=== PATIENT | male | born 1955 | race African-American/Black ===

== ENCOUNTER → 2016-08-23 | Emergency (ER) | payer MEDICAID ==
[~2016-08-23] VITALS: Ht 182.9 cm; Wt 163.3 kg
[~2016-08-23] MED LIST: ACETAMINOPHEN-1 EAC1 ORAL; ASPIR-LOW81 MG ORAL; ATENOLOL50 MG ORAL; AUGMENTIN 500M500 MG ORAL; FUROSEMIDE40 MG ORAL; GUAIFENESIN-CO118 M1 ORAL; HUMALOG100 UNIT/3 SUBQ; HYDRALAZINE HCL50 MG ORAL; IBUPROFEN600 MG ORAL; Ketorolac 60mg Inj IM ONE; LANTUS SOL100 UNIT/1 SUBQ; LEVAQUIN250 M1 ORAL; METFORMIN HCL1000 M1 ORAL; NORVASC10 MG ORAL; PHENERGAN/CODE120 ML ORAL; PHENERGAN6.25 MG/5 PO; TAMIFLU75 MG ORAL; pravastatin
[2016-08-23 23:27] VITALS: BP_SYST 142; BP_SYST 151; BP_DIAS 87; BP_DIAS 88
--- NOTE | 2016-08-24 00:47 | Emergency Room Report ---
History of Present Illness General Chief Complaint: Lower Extremity Injury Source: Patient Present Illness HPI Patient present with complaints of right knee pain Patient reports that he was coming down some stairs when he tripped and fell Hitting his right knee Pain is 8/10 Denies any pelvic pain denies any ankle pain Denies any chest pain or short of breath denies any other loss of consciousness Allergies: Coded Allergies: No Known Allergies (Verified , 04/06/11) Patient History Past Medical History: see triage record Pertinent Family History: none Reviewed Nursing Documentation: PMH: Agreed, PSxH: Agreed Nursing Documentation-PMH Hx Cardiac Problems: Yes - CHF Hx Hypertension: Yes Hx COPD: Yes Hx Diabetes: Yes Review of Systems All Other Systems: negative except mentioned in HPI Physical Exam Vital Signs Date Time Temp Pulse Resp B/P Pulse Ox O2 Delivery O2 Flow Rate FiO2 08/23/16 22:08 98.2 73 16 151/87 94 Room Air Sp02 EP Interpretation: reviewed, normal General Appearance: mild distress - In acute pain Head: normocephalic, atraumatic Eyes: bilateral eye EOMI, bilateral eye PERRL ENT: hearing grossly normal, normal pharynx Neck: full range of motion, supple, thyroid normal, no bony tend Respiratory: chest non-tender, lungs clear Cardiovascular #1: regular rate, rhythm, no edema Gastrointestinal: normal bowel sounds, non tender Genitourinary: no CVA tenderness Musculoskeletal: other - Tender on palpation of the right patella, no obvious ecchymosis or bruising Neurologic: alert Skin: normal color, no rash Lymphatic: no adenopathy Medical Decision Making Diagnostic Impression: Primary Impression: knee contusion ER Course Patient's imaging study does not reveal any obvious acute fracture patient has had severe arthritic changes along with previous pathology patient did better with acute intervention And will have close outpatient follow Other X-Ray Diagnostic Results Other X-Ray Diagnostic Results : EP Interpretation: Yes Findings: no fractures, no dislocation, no soft tissue swelling, other - Arthritic changes, questionable previous fracture Number of Views: 3 - right knee Last Vital Signs Date Time Temp Pulse Resp B/P Pulse Ox O2 Delivery O2 Flow Rate FiO2 08/23/16 23:27 98.3 88 16 142/88 96 Room Air Status: improved Disposition: HOME, SELF-CARE Condition: Improved Scripts Acetaminophen With Codeine (T#3) (TYLENOL #3 TAB*) Y Tab 1 TAB ORAL Q8H Y for For Pain, #10 TAB Prov: BHASKAR GUTIERREZ D.O. 08/23/16 Ibuprofen* (MOTRIN*) 600 Mg Tablet 600 MG ORAL Q8H Y for For Pain, #20 TAB 0 Refills Prov: BHASKAR GUTIERREZ D.O. 08/23/16 Referrals: [facility],REFERR[facility] (PCP) Patient Instructions: Contusion, [id number] Additional Instructions: Patient is provided with the discharge instructions notified to follow up with primary doctor in the next 2-3 days otherwise return to the er with any worsening symptoms. Please note that this report is being documented using [employer] technology. This can lead to erroneous entry secondary to incorrect interpretation by the dictating instrument. BHASKAR GUTIERREZ D.O. Aug 24, 2016 00:47
--- NOTE | 2016-08-24 11:24 | Diagnostic Imaging Report ---
Indication: PAIN Technique: 3 views of the right knee Comparison: None Findings:There are medial compartmental degenerative changes, and medial and lateral proliferative changes. There are patellofemoral proliferative changes and possibly some joint space narrowing. No suprapatellar effusion. No acute fractures. No dislocations. Impression:Degenerative changes, as described No acute bony trauma This agrees with the preliminary interpretation provided by the emergency room physician.
== END | disposition home or self-care (01) ==
LOC: EMR 22:30
DX: S80.01XA Contusion of right knee, initial encounter (principal); W10.9XXA Fall (on) (from) unspecified stairs and steps, initial encounter; Y92.9 Unspecified place or not applicable; I10 Essential (primary) hypertension; I50.9 Heart failure, unspecified; E11.9 Type 2 diabetes mellitus without complications; J44.9 Chronic obstructive pulmonary disease, unspecified
CPT/HCPCS: 96372; 99284

== ENCOUNTER 2018-05-17 14:12 | Emergency (ER) | payer MEDICAID ==
[~2018-05-17] VITALS: Ht 185.4 cm; Wt 140.6 kg
[~2018-05-17 14:12] MED LIST changes: -Ketorolac 60mg Inj IM ONE
[2018-05-17 14:30] VITALS: BP 148/100
--- NOTE | 2018-05-17 14:40 | Emergency Room Report ---
History of Present Illness General Chief Complaint: Pain Source: Patient, Medical Record Present Illness HPI Patient jammed his left fourth toe several days ago on a pipe. There is swelling on his foot now. He is diabetic. He's been taking Motrin 800 and [place] and this has been controlling the pain. 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 He denies any fevers or chills. There's no numbness. Is able to wiggle the toe. Pain rated 5/10, constant but worse when dependent, not radiate to foot. No rashes, skin breakdown. He takes "a lot" of insulin. He states his sugars have been well-controlled recently. No chest pain, abdominal pain, dysuria, change in bowels. Has chronic back pain, unchanged. 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 Nursing Documentation: PMH: Agreed; PSxH: Agreed Nursing Documentation-PMH Hx Cardiac Problems: Yes - CHF Hx Hypertension: Yes Hx COPD: Yes Hx Diabetes: Yes Review of Systems All Other Systems: negative except mentioned in HPI Physical Exam Vital Signs Date Time Temp Pulse Resp B/P (MAP) Pulse Ox O2 Delivery O2 Flow Rate FiO2 05/17/18 14:24 98.2 81 15 148/100 94 Room Air Sp02 EP Interpretation: reviewed, normal General Appearance: well appearing, no apparent distress, GCS 15 Head: normocephalic, atraumatic Eyes: bilateral eye normal inspection, bilateral eye PERRL ENT: hearing grossly normal, normal voice, moist mucus membranes Neck: full range of motion, supple Respiratory: lungs clear, normal breath sounds, no respiratory distress, speaking full sentences Cardiovascular #1: regular rate, rhythm, edema - minimal dorsum of L foot Cardiovascular #2: 2+ dorsalis pedis (L) - good cap fill Gastrointestinal: normal inspection, overweight Musculoskeletal: back normal, normal range of motion, no calf tenderness, swelling - L 4th toe, sl posterior displacement which he states is normal Neurologic: alert, motor strength/tone normal, sensory intact Psychiatric: mood/affect normal Skin: no rash, other - no erythema or skin breakdown, no T pedis noted Medical Decision Making Diagnostic Impression: Primary Impression: Toe fracture, left Qualified Codes: S92.515A - Nondisplaced fracture of proximal phalanx of left lesser toe(s), initial encounter for closed fracture Additional Impression: Diabetes Qualified Codes: E11.8 - Type 2 diabetes mellitus with unspecified complications; Z79.4 - roasterman (current) use of insulin ER Course Patient presents with trauma to his left fourth toe. Differential includes fracture, contusion, early infection amongst others. Clinically there is no evidence of infection at this time. X-rays are indicated. Also the patient will be given a dose of Tylenol. Xray with fx. Not place carissa tape as felt this would pose possible risk for skin breakdown. Ortho boot ordered. Discussed treatment plan with patient stressing elevation. Patient stable for outpatient observation and treatment. Other X-Ray Diagnostic Results Other X-Ray Diagnostic Results : # of Views/Limited Vs Complete: 3 View Indication: Pain EP Interpretation: Yes Interpretation: no dislocation, other - fx and STS Impression: Other Electronically Signed by: Electronically signed by Thomas Mayes MD Status: improved Disposition: HOME, SELF-CARE Condition: Improved Thomas Mayes MD May 17, 2018 14:40
--- NOTE | 2018-05-17 15:19 | Diagnostic Imaging Report ---
EXAM: XR Left Foot Complete, 3 or More Views CLINICAL HISTORY: TRAUMA TECHNIQUE: Frontal, lateral and oblique views of the left foot. COMPARISON: No relevant prior studies available. FINDINGS: Bones/joints: Nondisplaced fracture through the proximal phalanx of the fourth digit. No dislocation. Soft tissues: Unremarkable. No radiopaque foreign body. IMPRESSION: Nondisplaced fracture through the proximal phalanx of the fourth digit. No dislocation.
[2018-05-17 15:54] VITALS: BP 146/98
== END 2018-05-17 18:39 | disposition home or self-care (01) ==
LOC: EMR 14:35
DX: S92.515A Nondisplaced fracture of proximal phalanx of left lesser toe(s), initial encounter for closed fracture (principal); Z79.4 Long term (current) use of insulin; E11.9 Type 2 diabetes mellitus without complications; I11.0 Hypertensive heart disease with heart failure; I50.9 Heart failure, unspecified; J44.9 Chronic obstructive pulmonary disease, unspecified
CPT/HCPCS: 99283

== ENCOUNTER 2018-06-01 22:44 | Emergency (ER) | payer MEDICAID ==
[~2018-06-01] VITALS: Ht 182.9 cm; Wt 141.1 kg
--- NOTE | 2018-06-01 22:50 | NUR ---
ED Nurse Note: Pt walked into ER with a steady gait stating that he has R hip pain that radiates further down his leg. symptoms have started 3 days ago. pulse and cap refil are within normal limits. pulse and sensation noted.
[2018-06-01] MEDS ORDERED: POTASSIUM99 M3 PO (22:55)
[2018-06-01] MEDS ORDERED: GLIPIZIDE5 MG ORAL (22:55)
[2018-06-01 22:58] VITALS: BP 134/82
[2018-06-01] MEDS ORDERED: IBUPROFEN600 MG ORAL (23:13)
[2018-06-01] MEDS ORDERED: HYDROCODON-ACE1 EA15 ORAL (23:13)
--- NOTE | 2018-06-01 23:13 | Emergency Room Report ---
History of Present Illness General Chief Complaint: Pain Source: Patient Present Illness HPI Is a 63-year-old male with multiple medical problems. He presents with chief complaint of right hip pain. He was here recently for left foot pain and sustained a toe fracture. He's been walking with a orthopedic shoe. Now complaining of pain to the right hip and right buttock area. Onset for last few days. Initially to the mid buttock area. It now increasing pain and going down his leg. Worse with ambulating. Better with rest. No trauma. No fever chills but no nausea no vomiting. No incontinence of bowel or urine. Pain is 7 out of 10. Allergies: Coded Allergies: No Known Allergies (Verified , 04/06/11) Patient History Past Medical History: see triage record, old chart reviewed, DM, HTN Past Surgical History: other Pertinent Family History: none Social History: Denies: smoking Immunizations: other Reviewed Nursing Documentation: PMH: Agreed; PSxH: Agreed Nursing Documentation-PMH Hx Cardiac Problems: Yes - CHF Hx Hypertension: Yes Hx COPD: Yes Hx Diabetes: Yes Hx Neurological Problems: Yes - arthitis Review of Systems Eye: Denies: eye pain, blurred vision ENT: Denies: ear pain, nose congestion, throat swelling Respiratory: Denies: cough, shortness of breath Cardiovascular: Denies: chest pain, palpitations Gastrointestinal: Denies: abdominal pain, diarrhea, nausea, vomiting Musculoskeletal: Reports: back pain, joint pain Skin: Denies: rash Neurological: Denies: headache, numbness Endocrine: Denies: increased thirst, increased urine Hematologic/Lymphatic: Denies: easy bruising All Other Systems: negative except mentioned in HPI Physical Exam Vital Signs Date Time Temp Pulse Resp B/P (MAP) Pulse Ox O2 Delivery O2 Flow Rate FiO2 06/01/18 22:48 98.1 71 16 134/82 99 Room Air vitals normal Sp02 EP Interpretation: reviewed, normal General Appearance: well appearing, no apparent distress, alert, obese Head: normocephalic, atraumatic Eyes: bilateral eye PERRL, bilateral eye EOMI ENT: hearing grossly normal, normal pharynx Neck: full range of motion, supple, no meningismus Respiratory: chest non-tender, lungs clear, normal breath sounds Cardiovascular #1: regular rate, rhythm, no murmur Gastrointestinal: normal bowel sounds, non tender, no mass, no organomegaly, no bruit, non-distended Musculoskeletal: back normal, gait/station normal, normal range of motion, other - Pain over the right piriformis Psychiatric: mood/affect normal Skin: warm/dry Medical Decision Making Diagnostic Impression: Primary Impression: Piriformis syndrome of right side ER Course Patient with pain over the buttock in leg area. This is consistent with appear former syndrome. No fracture or dislocation. We'll discharge home. Other X-Ray Diagnostic Results Other X-Ray Diagnostic Results : X-Ray ordered: X-rays right hip # of Views/Limited Vs Complete: 3 View Indication: Pain EP Interpretation: Yes Interpretation: no dislocation, no soft tissue swelling, no fractures Impression: No acute disease Electronically Signed by: Apollo Lux MD Last Vital Signs Date Time Temp Pulse Resp B/P (MAP) Pulse Ox O2 Delivery O2 Flow Rate FiO2 06/01/18 22:58 98.1 70 16 134/82 99 Room Air Status: improved Disposition: HOME, SELF-CARE Condition: Stable Scripts Ibuprofen* (MOTRIN*) 600 Mg Tablet 600 MG ORAL THREE TIMES A DAY, #30 TAB 0 Refills Prov: Apollo Lux MD 06/01/18 Hydrocodone/Acetaminophen 5-325* (HYDROCODONE/ACETAMINOPHEN 5-325*) 1 Each Tablet 1 TAB ORAL Q6H PRN for For Pain, #15 TAB 0 Refills Prov: Apollo Lux MD 06/01/18 Additional Instructions: Follow-up with your doctor in 7 days. Return if symptom worsen. Apollo Lux MD Jun 01, 2018 23:13
[2018-06-01] MEDS ORDERED: Norco 5mg/325mg tab ORAL ONE (23:15)
--- NOTE | 2018-06-01 23:35 | NUR ---
ED Nurse Note: pt states he has a lot of congestion and cough, req med for congestion and breathing tx, ERMD notified. PER ERMD order, resp contacted.
[2018-06-01] MEDS ORDERED: Albuterol ud Inhalation HHN ONE (23:45)
--- NOTE | 2018-06-02 00:10 | NUR ---
ED Nurse Note: pt reports pain is slightly better, breathing is better after treatment. pt discharge instruction provided w/ prescription, pt education done, pt states friend VIKAS is picking pt up and driving home. pt verbalized understanding and agrees with plan. pt advised to follow up with pcp to continue care after dc.
[2018-06-02 00:12] VITALS: BP 141/77
--- NOTE | 2018-06-02 12:22 | Diagnostic Imaging Report ---
Indication: Pain in right hip for 2 days Technique: 2 views of the right hip Comparison: none Findings: There are degenerative changes of the medial pubic bone. There are mild degenerative changes of the right sacroiliac joint. No acute fractures. No dislocations. The hip joint space is preserved Impression: Mild degenerative changes. No acute bony trauma
== END 2018-06-02 00:10 | disposition home or self-care (01) ==
LOC: EMR 23:00
DX: G57.01 Lesion of sciatic nerve, right lower limb (principal); E66.9 Obesity, unspecified; E11.9 Type 2 diabetes mellitus without complications; J44.9 Chronic obstructive pulmonary disease, unspecified; I50.9 Heart failure, unspecified; M19.90 Unspecified osteoarthritis, unspecified site
CPT/HCPCS: 94640; 94664; 99284

== ENCOUNTER 2018-07-05 18:25 | Emergency (ER) | payer MEDICAID ==
[~2018-07-05] VITALS: Ht 182.9 cm; Wt 151.0 kg
[~2018-07-05 18:25] MED LIST changes: +GLIPIZIDE5 MG ORAL; +HYDROCODON-ACE1 EA15 ORAL; +POTASSIUM99 M3 PO
[2018-07-05] MEDS ORDERED: LOSARTAN POTASS25 MG ORAL (18:35)
[2018-07-05 18:58] VITALS: BP 125/98
[2018-07-05] MEDS ORDERED: Ipratropium 0.02% Inh Soln 2.5ml UD HHN ONE (19:00)
[2018-07-05] MEDS ORDERED: Albuterol ud Inhalation HHN ONE (19:00)
[2018-07-05 20:07] VITALS: BP 145/98
[2018-07-05] MEDS ORDERED: PREDNISONE20 MG ORAL (20:14)
[2018-07-05] MEDS ORDERED: CEPHALEXIN500 MG ORAL (20:14)
[2018-07-05 20:22] VITALS: BP 115/75
--- NOTE | 2018-07-06 14:34 | Emergency Room Report ---
History of Present Illness General Chief Complaint: General Complaint Source: Medical Record Present Illness HPI 63-year-old male presents ED for evaluation. Patient states he needs a breathing treatment. History of asthma. States he's been wheezing since yesterday. Denies chest pain or shortness of breath. Denies fevers or chills. Denies cough. Patient also states there is something in his right foot. States it is been there for many years. Has been evaluated by podiatry in the past. Has had multiple x-rays. Was told that if it surfaces it can be removed. Patient states he started feeling at surface yesterday. Wants to have it removed. Throbbing, 5 out of 10, nonradiating. Denies fevers or chills. Denies any discharge. No other aggravating relieving factors. Denies any other associated symptoms Allergies: Coded Allergies: No Known Allergies (Verified , 04/06/11) Patient History Past Medical History: DM, HTN, CHF, asthma Past Surgical History: none Pertinent Family History: none Social History: Denies: smoking, alcohol use, drug use Immunizations: UTD Reviewed Nursing Documentation: PMH: Agreed; PSxH: Agreed Nursing Documentation-PMH Past Medical History: No History, Except For Hx Cardiac Problems: Yes - CHF Hx Hypertension: Yes Hx COPD: Yes Hx Diabetes: Yes Hx Cancer: Yes - penile scrotal ca Hx Neurological Problems: Yes - arthitis Review of Systems All Other Systems: negative except mentioned in HPI Physical Exam Vital Signs Date Time Temp Pulse Resp B/P (MAP) Pulse Ox O2 Delivery O2 Flow Rate FiO2 07/05/18 18:30 98.8 63 18 163/88 96 Room Air 07/05/18 19:07 21 Sp02 EP Interpretation: reviewed, normal General Appearance: no apparent distress, alert, GCS 15, non-toxic Head: normocephalic, atraumatic Eyes: bilateral eye normal inspection, bilateral eye PERRL ENT: hearing grossly normal, normal pharynx, no angioedema, normal voice Neck: full range of motion, supple/symm/no masses Respiratory: chest non-tender, speaking full sentences, wheezing Cardiovascular #1: regular rate, rhythm, no edema Cardiovascular #2: 2+ carotid (R), 2+ carotid (L), 2+ radial (R), 2+ radial (L) , 2+ dorsalis pedis (R), 2+ dorsalis pedis (L) Gastrointestinal: normal bowel sounds, non tender, soft, non-distended, no guarding, no rebound Rectal: deferred Genitourinary: normal inspection, no CVA tenderness Musculoskeletal: back normal, gait/station normal, normal range of motion Neurologic: alert, oriented x3, responsive, motor strength/tone normal, sensory intact, speech normal Psychiatric: judgement/insight normal, memory normal, mood/affect normal, no suicidal/homicidal ideation Reflexes: 3+ bicep (R), 3+ bicep (L), 3+ tricep (R), 3+ tricep (L), 3+ knee (R) , 3+ knee (L) Skin: other - nodular swelling to base of R foot. no foreign body palpated Lymphatic: no adenopathy Medical Decision Making Diagnostic Impression: Primary Impression: Sensation of foreign body in foot Additional Impression: Bronchitis ER Course Hospital Course 63-year-old male presents to ED complaining of wheezing, states there is foreign body in foot Differential diagnoses include: URI, bronchitis, asthma/COPD, pneumonia Clinical course Patient placed on stretcher. After initial history and physical I ordered prednisone and nebulizer treatment. Upon reassessment patient states cough and symptoms have improved. Findings consistent with bronchitis. I evaluated the foot. There is a nodular swelling. Patient states it is been there for 2 years at least. There is no emergent indication to remove this as there is no signs of infection and it is been there for 2 years however I agreed to attempt a local exploration. I anesthetized the foot. using scalpel i made a small incision over the site. using forceps i explored the area but saw no sign of foreign body I explained the patient that I do not identify any foreign body at this time. Patient would require detailed exploration by podiatry. No signs of infection at this time. I will provide podiatry referrals. because patient is diabetic we 'll prescribe antibiotics Diagnosis - sensation of foreign body in foot, bronchitis Stable and discharged home with prescriptions for Rx keflex, prednisone. Instructed to followup with PMD, podiatry. Return to ED if symptoms recur or worsen Last Vital Signs Date Time Temp Pulse Resp B/P (MAP) Pulse Ox O2 Delivery O2 Flow Rate FiO2 07/05/18 20:22 98.0 68 14 115/75 99 Room Air 68 07/05/18 19:33 21 Status: improved Disposition: HOME, SELF-CARE Condition: Stable Scripts Prednisone* (PREDNISONE*) 20 Mg Tablet 40 MG ORAL DAILY, #10 TAB Prov: Piyush Pizano MD 07/05/18 Cephalexin* (KEFLEX*) 500 Mg Capsule 500 MG ORAL EVERY 6 HOURS for 7 Days, CAP Prov: Piyush Pizano MD 07/05/18 Referrals: NON PHYSICIAN (PCP) Escobar Johansen DPM, BENJAMIN M.D. Patient Instructions: Sliver Removal, Care After Piyush Pizano MD Jul 06, 2018 14:34
== END 2018-07-05 20:22 | disposition home or self-care (01) ==
LOC: EMR 18:50
DX: M25.571 Pain in right ankle and joints of right foot (principal); J20.9 Acute bronchitis, unspecified; I11.0 Hypertensive heart disease with heart failure; I50.9 Heart failure, unspecified; E11.9 Type 2 diabetes mellitus without complications; Z85.89 Personal history of malignant neoplasm of other organs and systems
CPT/HCPCS: 94640; 94664; 99284; J7512

== ENCOUNTER 2018-08-30 21:13 | Emergency (ER) | payer MEDICAID ==
[~2018-08-30] VITALS: Ht 182.9 cm; Wt 142.9 kg
[~2018-08-30 21:13] MED LIST changes: +CEPHALEXIN500 MG ORAL; +LOSARTAN POTASS25 MG ORAL; +PREDNISONE20 MG ORAL
--- NOTE | 2018-08-30 21:50 | NUR ---
ED Nurse Note: pt walked in c/o low back pain, pt states he was lifting something heavy and hurt his back on saturday and having pain since. Noted tenderness on low back, no obviou deformity nor open wound nor contusion noted. will cont monitor.
[2018-08-30] MEDS ORDERED: Methocarbamol 750mg tab ORAL ONE (22:00)
[2018-08-30] MEDS ORDERED: Ketorolac 30mg Inj IM ONE (22:00)
[2018-08-30 22:06] VITALS: BP 144/104
[2018-08-30] MEDS ORDERED: ROBAXIN-750750 MG PO (22:23)
[2018-08-30] MEDS ORDERED: TYLENOL EXTRA500 MG ORAL (22:23)
[2018-08-30] MEDS ORDERED: COLACE100 MG ORAL (22:23)
[2018-08-30] MEDS ORDERED: LIDODERM700 M1 TOPIC (22:23)
--- NOTE | 2018-08-30 22:25 | NUR ---
ED Nurse Note: pt cleared to be d/c per ERMD, pt discharge and aftercare instruction provided w/ prescription, pt education done via discussion and handout, pt advised to follow up with pcp or return to ed if sx worsen or new sx develop, pt verbalized understanding and agrees with plan, vss, ambulatory w/ steady gait, left w/ all belongings.
[2018-08-30 22:28] VITALS: BP 132/67
--- NOTE | 2018-08-31 01:41 | Emergency Room Report ---
History of Present Illness General Chief Complaint: Lower Back Pain or Injury Source: Patient Present Illness HPI 63-year-old male presents ED for evaluation. Complaining of back pain 2 days. 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 Pain is sharp, 10 out of 10, nonradiating. Localized to left lower back. States he took ibuprofen earlier today without relief. Denies bowel or bladder incontinence. Denies any leg or motor weakness. No other aggravating relieving factors. Denies any other associated symptoms Allergies: Coded Allergies: No Known Allergies (Verified , 04/06/11) Patient History Past Medical History: DM, HTN, CHF, COPD Past Surgical History: none Pertinent Family History: none Social History: Denies: smoking, alcohol use, drug use Immunizations: UTD Reviewed Nursing Documentation: PMH: Agreed; PSxH: Agreed Nursing Documentation-PMH Past Medical History: No History, Except For Hx Cardiac Problems: Yes - CHF Hx Hypertension: Yes Hx COPD: Yes Hx Diabetes: Yes Hx Cancer: Yes - penile scrotal ca Hx Neurological Problems: Yes - arthitis Review of Systems All Other Systems: negative except mentioned in HPI Physical Exam Vital Signs Date Time Temp Pulse Resp B/P (MAP) Pulse Ox O2 Delivery O2 Flow Rate FiO2 08/30/18 21:31 98.1 88 22 128/85 94 08/30/18 22:06 Room Air Sp02 EP Interpretation: reviewed, normal General Appearance: no apparent distress, alert, GCS 15, non-toxic, obese Head: normocephalic, atraumatic Eyes: bilateral eye normal inspection, bilateral eye PERRL ENT: hearing grossly normal, normal pharynx, no angioedema, normal voice Neck: full range of motion, supple/symm/no masses Respiratory: chest non-tender, lungs clear, normal breath sounds, speaking full sentences Cardiovascular #1: regular rate, rhythm, no edema Cardiovascular #2: 2+ carotid (R), 2+ carotid (L), 2+ radial (R), 2+ radial (L) , 2+ dorsalis pedis (R), 2+ dorsalis pedis (L) Gastrointestinal: normal bowel sounds, non tender, soft, non-distended, no guarding, no rebound Rectal: deferred Genitourinary: normal inspection, no CVA tenderness, no vertebral tenderness Musculoskeletal: gait/station normal, normal range of motion, tender - L paraspinal lumbar tenderness Neurologic: alert, oriented x3, responsive, motor strength/tone normal, sensory intact, speech normal Psychiatric: judgement/insight normal, memory normal, mood/affect normal, no suicidal/homicidal ideation Reflexes: 3+ bicep (R), 3+ bicep (L), 3+ tricep (R), 3+ tricep (L), 3+ knee (R) , 3+ knee (L) Skin: normal color, no rash, warm/dry, well hydrated Lymphatic: no adenopathy Medical Decision Making Diagnostic Impression: Primary Impression: Unspecified injury of lower back, sequela Additional Impression: Opioid dependence Qualified Codes: F11.29 - Opioid dependence with unspecified opioid-induced disorder ER Course Hospital Course 63-year-old male presents ED complaining of lower back pain. Differential diagnoses include: pyelonephritis, kidney stone, muscle strain, Lspine fracture Clinical course Patient placed on stretcher. After initial history, physical exam reveals a middle-aged male in no acute distress. There is no vertebral body tenderness. no CVA tenderness. There is some paraspinal tenderness on the left side. 5 out of 5 strength in both extremities. No sensory deficits. I reviewed CURES; he is receiving monthly prescriptions for [place] and soma. patient denies receiving these medications Patient given Toradol, Robaxin, Lidoderm here in ED. On reassessment pain is improved. Safe for discharge with close patient follow up. States he has a PMD Diagnosis - back pain, opioid dependence Stable and discharged to home with prescription for treatment tylenol, robaxin, lidoderm. Followup with PMD. Return to ED if symptoms recur or worsen Last Vital Signs Date Time Temp Pulse Resp B/P (MAP) Pulse Ox O2 Delivery O2 Flow Rate FiO2 08/30/18 22:28 98.4 74 16 132/67 98 Room Air Status: improved Disposition: HOME, SELF-CARE Condition: Stable Scripts Docusate Sodium* (COLACE*) 100 Mg Capsule 100 MG ORAL THREE TIMES A DAY, #30 CAP Prov: Piyush Pizano MD 08/30/18 Lidocaine (Lidoderm) 1 Each Adh..patch 1 PATCH TOPIC DAILY, #7 PATCH 0 Refills Patch(es) may remain in place for up to 12 hours in any 24-hour period. Prov: Piyush Pizano MD 08/30/18 Methocarbamol* (ROBAXIN-750*) 750 Mg Tablet 750 MG PO TID, #21 TAB 0 Refills Prov: Piyush Pizano MD 08/30/18 Acetaminophen* (TYLENOL EXTRA STRENGTH*) 500 Mg Tablet 500 MG ORAL Q8H PRN for Prn Headache/Temp > 101, #30 TAB 0 Refills Prov: Piyush Pizano MD 08/30/18 Referrals: [facility],REFERRING (PCP) [facility] Patient Instructions: Lumbosacral Strain Piyush Pizano MD Aug 31, 2018 01:41
== END 2018-08-30 22:28 | disposition home or self-care (01) ==
LOC: EMR 22:00
DX: S39.92XA Unspecified injury of lower back, initial encounter (principal); X50.9XXA Other and unspecified overexertion or strenuous movements or postures, initial encounter; Y92.9 Unspecified place or not applicable; F11.20 Opioid dependence, uncomplicated; I11.0 Hypertensive heart disease with heart failure; I50.9 Heart failure, unspecified; E11.9 Type 2 diabetes mellitus without complications; J44.9 Chronic obstructive pulmonary disease, unspecified; Z85.89 Personal history of malignant neoplasm of other organs and systems
CPT/HCPCS: 96372; 99283; J1885

== ENCOUNTER 2018-10-09 19:36 | Inpatient (IN) | payer MEDICAID ==
[~2018-10-09] VITALS: Ht 182.9 cm; Wt 158.8 kg
[~2018-10-09 19:36] MED LIST changes: +COLACE100 MG ORAL; +LIDODERM700 M1 TOPIC; +ROBAXIN-750750 MG PO; +TYLENOL EXTRA500 MG ORAL
--- NOTE | 2018-10-09 19:45 | NUR ---
ED Nurse Note: Received report. Pt from home, AAOx4, ambulatory, c/o c/p 10/10 for 2 days. Pt has hx of CHF, HTN and DM. VS taken, president/gm production & live experiences applied. [place] assess and carry out ERMD's orders.
[2018-10-09] MEDS ORDERED: NORCO 10-325 T1 EACH ORAL (19:55)
[2018-10-09] MEDS ORDERED: ATORVASTATIN CA40 MG ORAL (19:55)
[2018-10-09] MEDS ORDERED: ASPIRIN81 M3 PO (19:55)
[2018-10-09 20:00] VITALS: BP 113/84
[2018-10-09] MEDS ORDERED: Aspirin Baby 81mg ORAL ONE (20:00)
[2018-10-09] MEDS ORDERED: Nitroglycerin 2% oint pkt TOPIC ONE (20:00)
--- NOTE | 2018-10-09 20:27 | Emergency Room Report ---
History of Present Illness General Chief Complaint: Chest Pain Source: Patient Present Illness HPI Patient has a history of CHF coronary artery diabetes who presents to the emergency department today complaining of chest pain. Chest pain is described as intermittent episodic retrosternal lasting throughout yesterday and today. Patient states that he has not had a recent stress test. He saw a tray server who told him that he likely had congestion. No other complaints are noted. Symptoms noted to be moderate to severe. Denies any fever cough runny nose or sore throat. No other modifying factors. No other associated signs and symptoms. No other complaints were noted. Allergies: Coded Allergies: No Known Allergies (Verified , 04/06/11) Patient History Past Medical History: DM, HTN, CHF, COPD Past Surgical History: none Social History: Denies: smoking, alcohol use, drug use Reviewed Nursing Documentation: PMH: Agreed; PSxH: Agreed Nursing Documentation-PMH Hx Cardiac Problems: Yes - CHF Hx Hypertension: Yes Hx COPD: Yes Hx Diabetes: Yes Hx Cancer: Yes - penile scrotal ca Hx Neurological Problems: Yes - arthitis Review of Systems All Other Systems: negative except mentioned in HPI Physical Exam Vital Signs Date Time Temp Pulse Resp B/P (MAP) Pulse Ox O2 Delivery O2 Flow Rate FiO2 10/09/18 19:40 98.6 115 14 100 Room Air Sp02 EP Interpretation: reviewed, normal General Appearance: normal inspection, well appearing, no apparent distress, alert Head: atraumatic Eyes: bilateral eye normal inspection ENT: normal ENT inspection, hearing grossly normal, normal voice Neck: normal inspection, full range of motion, supple, no bony tend Respiratory: normal inspection, lungs clear, normal breath sounds, no respiratory distress, no retraction, no wheezing Cardiovascular #1: regular rate, rhythm, no edema Gastrointestinal: normal inspection, normal bowel sounds, non tender, soft, no guarding, no hernia Genitourinary: no CVA tenderness Musculoskeletal: normal inspection, back normal, normal range of motion, swelling - leg swelling Neurologic: normal inspection, alert, responsive, speech normal Psychiatric: normal inspection, judgement/insight normal, mood/affect normal Skin: normal inspection, normal color, no rash Medical Decision Making Diagnostic Impression: Primary Impression: Chest pain Additional Impressions: Atrial fibrillation and flutter Unstable angina ER Course Patient presents emergency department today complaint chest discomfort. Differential considerations include acute coronary syndrome, electrolyte abnormality, noncardiac chest pain just name a few. Given the severity of the patient's presentation I felt this is a highly complex patient. This patient required extensive workup. Patient is complete laboratory work-up is pending at this time. However EKG shows evidence of atrial fibrillation. Because patient has evidence of atrial fibrillation which is new onset with risk factors chest pain after the patient likely requires admission. At time at this dictation patient's pending laboratory work-up. We will sign the case out to Dr. Kendell Willoughby for final disposition. Labs Test 10/09/18 19:55 Sodium Level 141 MMOL/L (136-145) Potassium Level 3.2 MMOL/L (3.5-5.1) Chloride Level 104 MMOL/L (98-107) Carbon Dioxide Level 28 MMOL/L (21-32) Anion Gap 9 mmol/L (5-15) Blood Urea Nitrogen 20 mg/dL (7-18) Creatinine 1.9 MG/DL (0.55-1.30) Estimat Glomerular Filtration Rate 43.9 mL/min (>60) Glucose Level 191 MG/DL (74-106) Calcium Level 8.9 MG/DL (8.5-10.1) Troponin I 0.010 ng/mL (0.000-0.056) EKG Diagnostic Results Rate: normal Rhythm: other - Atrial fibrillation ST Segments: no acute changes Rhythm Strip Diag. Results EP Interpretation: yes Rate: 80s Rhythm: no PVC's, no ectopy, other - Atrial fibrillation Chest X-Ray Diagnostic Results Chest X-Ray Diagnostic Results : Chest X-Ray Ordered: Yes # of Views/Limited/Complete: 1 View Indication: Chest Pain EP Interpretation: Yes Interpretation: no consolidation, no effusion, no pneumothorax Impression: No acute disease Electronically Signed by: Electronically signed by Fransisco Oseguera MD Last Vital Signs Date Time Temp Pulse Resp B/P (MAP) Pulse Ox O2 Delivery O2 Flow Rate FiO2 10/09/18 19:40 98.6 115 14 100 Room Air Status: improved Disposition: ADMITTED INPATIENT Condition: Serious Referrals: [facility],REFERRING (PCP) Fransisco Oseguera MD October 09, 2018 20:27
[2018-10-09 20:35] LABS: ANION GAP 9 mmol/L (5-15); BLOOD UREA NITROGEN 20 mg/dL (7-18); CALCIUM 8.9 MG/DL (8.5-10.1); CARBON DIOXIDE 28 MMOL/L (21-32); CHLORIDE 104 MMOL/L (98-107); CREATININE 1.9 MG/DL (0.55-1.30); POTASSIUM 3.2 MMOL/L (3.5-5.1); SODIUM 141 MMOL/L (136-145)
[2018-10-09 20:56] LABS: ALANINE AMINOTRANSFERASE 26 U/L (12-78); ALBUMIN 3.8 G/DL (3.4-5.0); ALKALINE PHOSPHATASE 84 U/L (46-116); ASPARTATE AMINO TRANSFERASE 17 U/L (15-37); BILIRUBIN,TOTAL 0.5 MG/DL (0.2-1.0); CREATINE KINASE 564 U/L (26-308)
[2018-10-09] MEDS ORDERED: [UNRECOGNIZED DRUG - OTHER] (21:07)
[2018-10-09] MEDS ORDERED: VENTOLIN HFA18 GM INH (21:07)
[2018-10-09] MEDS ORDERED: ADVAIR 500-501 EACH INH (21:07)
[2018-10-09 21:08] LABS: APPEARANCE,URINE CLEAR; BILIRUBIN, URINE NEGATIVE (NEGATIVE); COLOR,URINE AMBER; GLUCOSE, URINE (UA) 1+ (NEGATIVE); KETONES,URINE 1+ (NEGATIVE); LEUKOCYTE ESTERASE ,URINE 1+ (NEGATIVE); NITRITE,URINE NEGATIVE (NEGATIVE); PH,URINE 5 (4.5-8.0); PROTEIN,URINE 2+ (NEGATIVE); UROBILINOGEN,URINE 1 MG/DL (0.0-1.0)
[2018-10-09 21:10] LABS: BASOPHILS % (AUTO) 1.2 % (0.0-2.0); EOSINOPHILS % (AUTO) 4.1 % (0.0-3.0); HEMATOCRIT 37.7 % (42.0-52.0); HEMOGLOBIN 12.5 G/DL (14.2-18.0); LYMPHOCYTES % (AUTO) 33.4 % (20.0-45.0); MEAN CORPUSCULAR VOLUME 79 FL (80-99); NEUTROPHILS % (AUTO) 52.3 % (45.0-75.0); PLATELET COUNT 187 K/UL (150-450); RED BLOOD COUNT 4.75 M/UL (4.70-6.10); RED CELL DISTRIBUTION WIDTH 13.3 % (11.6-14.8); WHITE BLOOD COUNT 6.3 K/UL (4.8-10.8)
--- NOTE | 2018-10-09 21:51 | NUR ---
NURSE NOTES: Received report via phone from SHAUN Blanca. Called and left a message with Dr. Rodriguez regarding admission orders. Awaiting call back and patient arrival.
[2018-10-09] MEDS ORDERED: Morphine Sulfate 2mg/ml Inj(IV/IM USE ONLY) IVP PRN (22:00)
[2018-10-09] MEDS: Heparin 5000 units/ml inj SUBQ SCH (22:00)
[2018-10-09] MEDS ORDERED: dilTIAZem HCl 25mg/5ml Inj IV PRN (22:00)
[2018-10-09] MEDS ORDERED: Miralax 17gm pkt ORAL PRN (22:00)
[2018-10-09] MEDS ORDERED: Enalaprilat 2.5mg/2ml Inj IV PRN (22:00)
[2018-10-09] MEDS ORDERED: Nitroglycerin Subl 0.4mg tab SL PRN (22:00)
[2018-10-09 22:45] VITALS: BP 124/60
--- NOTE | 2018-10-09 22:56 | NUR ---
NURSE NOTES: Received pt on the unit. Called and left message with Dr. Cardoso informing him that pt sleeps with CPAP and his potassium is low with no coverage in the ER. Awaiting reply. Pt is awake, alert, and talkative. VSS. Pt has no current complaints of pain and reported that he feels much better. He ambulates steadily. Bed in lowest position. Lung sounds clear. Call light within reach. Will continue to monitor.
--- NOTE | 2018-10-09 23:41 | NUR ---
HAND-OFF: Report given to SHAUN Maya. Pt stable.
--- NOTE | 2018-10-09 23:45 | NUR ---
NURSE NOTES: Received report from Chris Carrasco RN. Patient in bed AAO X4, able to verbalize needs and wants appropriately with no difficulty. No complaints of acute pain at this time, kept clean, dry, and comfortable in bed. Placed on continuous cardiac monitoring per protocol. IV line intact and patent SL. Able to use urinal at bedside, and ambulates with assist to the bathroom. Safety precaution in place; siderails X2 up, call light within reach, bed in lowest position, brakes and alarm on at all times. New orders received and carried out; needs and wants anticipated and attended. Will continue plan of care and monitor for any changes noted.
[2018-10-10] VITALS: BP 125/74
[2018-10-10] MEDS: Albuterol/Ipratropium 3ml neb HHN PRN ×2 (01:35→08:59)
--- NOTE | 2018-10-10 02:08 | NUR ---
NURSE NOTES: Patient in bed asleep with no S/S of distress noted at this times. Will continue to monitor.
--- NOTE | 2018-10-10 03:08 | NUR ---
NURSE NOTES: Patient complaining of SOB, laying flat in bed. Offered to raise HOB to alleviate and help with SOB. Called Rt to give HHN TX PRN. Patient stated that he has a CPAP at home and uses it at night for episodes of Apnea. MD aware but no new orders. Will F/U with AM shift
[2018-10-10 04:00] VITALS: BP 128/78
[2018-10-10] MEDS: Heparin 5000 units/ml inj SUBQ SCH (06:13)
[2018-10-10] MEDS: NovoLOG Insulin Flexpen SUBQ SCH ×2 (06:14→12:21)
[2018-10-10 06:36] LABS: BASOPHILS % (AUTO) 1.1 % (0.0-2.0); EOSINOPHILS % (AUTO) 5.8 % (0.0-3.0); HEMOGLOBIN 11.8 G/DL (14.2-18.0); LYMPHOCYTES % (AUTO) 34.7 % (20.0-45.0); MEAN CORPUSCULAR VOLUME 81 FL (80-99); MONOCYTES % (AUTO) 10.6 % (1.0-10.0); NEUTROPHILS % (AUTO) 47.9 % (45.0-75.0); PLATELET COUNT 178 K/UL (150-450); RED BLOOD COUNT 4.47 M/UL (4.70-6.10); RED CELL DISTRIBUTION WIDTH 13.7 % (11.6-14.8); WHITE BLOOD COUNT 5.9 K/UL (4.8-10.8)
[2018-10-10 06:40] LABS: INR 1.1 (0.9-1.1)
[2018-10-10 07:01] LABS: CHOLESTEROL 101 MG/DL (< 200); HDL CHOLESTEROL 24 MG/DL (40-60); TRIGLYCERIDES 131 MG/DL (30-150)
--- NOTE | 2018-10-10 07:41 | NUR ---
HAND-OFF: Report given to Monse Faulkner RN. Patient in bed with S/S of distress at this time. Will continue plan of care and monitor for any changes noted.
--- NOTE | 2018-10-10 07:57 | NUR ---
NURSE NOTES: received report from Francesco DUNN. Pt is awake using the restroom urinated and had a bowel movement this morning. Pt on cardiac/vascular sonographer no signs of distress at this time. Bed is locked and in lowest position and call light is next to him. Will continue to follow plan of care.
[2018-10-10 08:00] VITALS: BP 141/91
--- NOTE | 2018-10-10 08:17 | NUR ---
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
[2018-10-10] MEDS ORDERED: Aspirin Baby 81mg ORAL SCH (09:00)
[2018-10-10] MEDS ORDERED: Promethazine/Codeine 5ml UD ORAL PRN (11:15)
--- NOTE | 2018-10-10 11:26 | Consultation ---
History of Present Illness General Date patient seen: October 10, 2018 Chief Complaint: Chest Pain Present Illness HPI 63 year old male with a history of CHF, CAD< COPD, Obesity, diabetes presented to the emergency department today complaining of chest pain, described as intermittent episodic retrosternal lasting throughout yesterday and today. He also has productive cough with greenish phlegm. He was diagnosed to have atrial flutter and admitted to telemetry. Allergies: Coded Allergies: No Known Allergies (Verified , 04/06/11) Medication History Scheduled Albuterol Sulfate (Ventolin Hfa), 2 PUFFS INH EVERY 6 HOURS, (Reported) Amlodipine Besylate (Norvasc), 10 MG ORAL DAILY, (Reported) Atenolol* (Tenormin*), 50 MG ORAL DAILY, (Reported) Atorvastatin Calcium* (Atorvastatin Calcium*), 50 MG ORAL BEDTIME, (Reported) Cephalexin* (Keflex*), 500 MG ORAL EVERY 6 HOURS Docusate Sodium* (Colace*), 100 MG ORAL THREE TIMES A DAY Fluticasone/Salmeterol (Advair 500-50 Diskus), 1 PUFF INH EVERY 12 HOURS, ( Reported) Glipizide* (Glipizide*), 10 MG ORAL BIDAC, (Reported) Ibuprofen* (Motrin*), 600 MG ORAL THREE TIMES A DAY Insulin Glargine (Lantus), 60 SUBQ BEDTIME, (Reported) Lidocaine (Lidoderm), 1 PATCH TOPIC DAILY Losartan Potassium* (Losartan Potassium*), 25 MG ORAL DAILY, (Reported) Methocarbamol* (Robaxin-750*), 750 MG PO TID Prednisone* (Prednisone*), 40 MG ORAL DAILY Scheduled PRN Acetaminophen* (Tylenol Extra Strength*), 500 MG ORAL Q8H PRN for Prn Headache/ Temp > 101 Hydrocodone Bit/Acetaminophen 10-325* ([place] 10-325*), 1 TAB ORAL Q6H PRN for For Pain, (Reported) Hydrocodone/Acetaminophen 5-325* (Hydrocodone/Acetaminophen 5-325*), 1 TAB ORAL Q6H PRN for For Pain Miscellaneous Medications Aspirin (Aspirin), 81 MG PO, (Reported) Potassium Gluconate (Potassium), 25 MG PO, (Reported) [Spiral], (Reported) Patient History Healthcare decision maker [phone] daughter Resuscitation status Full Code Advanced Directive on File Past Medical/Surgical History Past Medical/Surgical History: (1) CAD (coronary artery disease) (2) COPD (chronic obstructive pulmonary disease) Review of Systems All Other Systems: negative except mentioned in HPI Physical Exam General Appearance: obese Lines, tubes and drains: peripheral HEENT: normocephalic, atraumatic Neck: non-tender, normal alignment Respiratory/Chest: chest wall non-tender, lungs clear Breasts: no masses Cardiovascular/Chest: normal peripheral pulses Abdomen: normal bowel sounds Genitourinary/Rectal: normal genital exam Extremities: normal range of motion Skin Exam: normal pigmentation Last 24 Hour Vital Signs Date Time Temp Pulse Resp B/P (MAP) Pulse Ox O2 Delivery O2 Flow Rate FiO2 10/10/18 09:12 90 18 100 Room Air 21 10/10/18 08:59 87 18 Room Air 21 10/10/18 08:59 87 18 95 Room Air 21 10/10/18 08:00 97.7 94 18 141/91 (108) 94 10/10/18 08:00 93 10/10/18 04:00 96.8 84 20 128/78 (95) 96 10/10/18 04:00 81 10/10/18 01:47 88 18 100 Room Air 21 10/10/18 01:35 90 22 92 Room Air 21 10/10/18 01:35 90 22 Room Air 21 10/10/18 00:00 86 10/10/18 00:00 98.2 85 20 125/74 (91) 95 10/09/18 23:30 90 10/09/18 23:02 Room Air 10/09/18 22:45 97.3 87 124/60 (81) 96 10/09/18 21:48 86 17 129/67 97 Room Air 10/09/18 20:00 98.6 88 17 113/84 99 Room Air 10/09/18 20:00 137/85 10/09/18 19:48 118 18 Room Air 10/09/18 19:40 98.6 115 14 100 Room Air Intake and Output 10/09/18 10/10/18 19:00 07:00 Intake Total 480 ml Balance 480 ml Intake Oral 480 ml Laboratory Tests Test 10/09/18 19:55 10/09/18 20:35 10/09/18 20:55 10/10/18 04:50 Sodium Level 141 MMOL/L (136-145) Potassium Level 3.2 MMOL/L (3.5-5.1) L Chloride Level 104 MMOL/L (98-107) Carbon Dioxide Level 28 MMOL/L (21-32) Anion Gap 9 mmol/L (5-15) Blood Urea Nitrogen 20 mg/dL (7-18) H Creatinine 1.9 MG/DL (0.55-1.30) H Estimat Glomerular Filtration Rate 43.9 mL/min (>60) Glucose Level 191 MG/DL (74-106) H Calcium Level 8.9 MG/DL (8.5-10.1) Total Bilirubin 0.5 MG/DL (0.2-1.0) Aspartate Amino Transf (AST/SGOT) 17 U/L (15-37) Alanine Aminotransferase (ALT/SGPT) 26 U/L (12-78) Alkaline Phosphatase 84 U/L (46-116) Total Creatine Kinase 564 U/L (26-308) H Creatine Kinase MB 3.0 NG/ML (0.0-3.6) Creatine Kinase MB Relative Index 0.5 Troponin I 0.010 ng/mL (0.000-0.056) 0.017 ng/mL (0.000-0.056) Pro-B-Type Natriuretic Peptide 202 pg/mL (0-125) H Total Protein 7.7 G/DL (6.4-8.2) Albumin 3.8 G/DL (3.4-5.0) Globulin 3.9 g/dL Albumin/Globulin Ratio 1.0 (1.0-2.7) White Blood Count 6.3 K/UL (4.8-10.8) 5.9 K/UL (4.8-10.8) Red Blood Count 4.75 M/UL (4.70-6.10) 4.47 M/UL (4.70-6.10) L Hemoglobin 12.5 G/DL (14.2-18.0) L 11.8 G/DL (14.2-18.0) L Hematocrit 37.7 % (42.0-52.0) L 36.0 % (42.0-52.0) L Mean Corpuscular Volume 79 FL (80-99) L 81 FL (80-99) Mean Corpuscular Hemoglobin 26.3 PG (27.0-31.0) L 26.4 PG (27.0-31.0) L Mean Corpuscular Hemoglobin Concent 33.2 G/DL (32.0-36.0) 32.7 G/DL (32.0-36.0) Red Cell Distribution Width 13.3 % (11.6-14.8) 13.7 % (11.6-14.8) Platelet Count 187 K/UL (150-450) 178 K/UL (150-450) Mean Platelet Volume 8.2 FL (6.5-10.1) 7.9 FL (6.5-10.1) Neutrophils (%) (Auto) 52.3 % (45.0-75.0) 47.9 % (45.0-75.0) Lymphocytes (%) (Auto) 33.4 % (20.0-45.0) 34.7 % (20.0-45.0) Monocytes (%) (Auto) 9.0 % (1.0-10.0) 10.6 % (1.0-10.0) H Eosinophils (%) (Auto) 4.1 % (0.0-3.0) H 5.8 % (0.0-3.0) H Basophils (%) (Auto) 1.2 % (0.0-2.0) 1.1 % (0.0-2.0) Urine Color Noris Urine Appearance Clear Urine pH 5 (4.5-8.0) Urine Specific [place] 1.025 (1.005-1.035) Urine Protein 2+ (NEGATIVE) H Urine Glucose (UA) 1+ (NEGATIVE) H Urine Ketones 1+ (NEGATIVE) H Urine Blood Negative (NEGATIVE) Urine Nitrite Negative (NEGATIVE) Urine Bilirubin Negative (NEGATIVE) Urine Ictotest Negative (NEGATIVE) Urine Urobilinogen 1 MG/DL (0.0-1.0) H Urine Leukocyte Esterase 1+ (NEGATIVE) H Urine RBC 0-2 /HPF (0 - 0) H Urine WBC 0-2 /HPF (0 - 0) Urine Squamous Epithelial Cells Occasional /LPF Urine Bacteria Few /HPF (NONE) Prothrombin Time 11.3 SEC (9.30-11.50) Prothromb Time International Ratio 1.1 (0.9-1.1) Activated Partial Thromboplast Time 25 SEC (23-33) C-Reactive Protein, Quantitative < 0.4 mg/dL (0.00-0.90) Triglycerides Level 131 MG/DL (30-150) Cholesterol Level 101 MG/DL (< 200) LDL Cholesterol 65 mg/dL (<100) HDL Cholesterol 24 MG/DL (40-60) L Cholesterol/HDL Ratio 4.2 (3.3-4.4) Thyroid Stimulating Hormone (TSH) 1.155 uiU/mL (0.358-3.740) Height (Feet): 6 Height (Inches): 0.00 Weight (Pounds): 350 Medications Current Medications Medications (Trade) Dose Ordered Sig/Bernadine Route PRN Reason Start Time Stop Time Status Last Admin Dose Admin Acetaminophen (Tylenol) 650 mg Q4H PRN ORAL FEVER 10/09/18 22:00 11/08/18 21:59 10/10/18 03:28 Albuterol/ Ipratropium (Albuterol/ Ipratropium) 3 ml Q4H PRN HHN Shortness of Breath 10/09/18 22:00 10/14/18 21:59 10/10/18 08:59 Aspirin (ASA) 162 mg DAILY ORAL 10/10/18 09:00 11/09/18 08:59 10/10/18 08:44 Dextrose (Dextrose 50%) 25 ml Q30M PRN IV Hypoglycemia 10/09/18 22:00 11/08/18 21:59 Diltiazem HCl (Cardizem) 10 mg Q1H PRN IV heart rate more than 120, 10/09/18 22:00 11/08/18 21:59 Enalaprilat (Vasotec) 2.5 mg Q6H PRN IV sbp more than 160 10/09/18 22:00 11/08/18 21:59 Heparin Sodium (Porcine) (Heparin 5000 units/ml) 5,000 units EVERY 8 HOURS SUBQ 10/09/18 22:00 11/08/18 21:59 10/10/18 06:13 Insulin Aspart (NovoLOG) BEFORE MEALS AND HS SUBQ 10/10/18 06:30 11/09/18 06:29 10/10/18 06:14 Levofloxacin 100 ml @ 100 mls/hr Q24H IVPB 10/10/18 11:15 10/17/18 11:14 UNV Morphine Sulfate (Morphine Sulfate) 2 mg Q4H PRN IVP severe Pain (Pain Scale 7-10) 10/09/18 22:00 10/16/18 21:59 Nitroglycerin (Ntg) 0.4 mg Q5M PRN SL Chest Pain 10/09/18 22:00 11/08/18 21:59 Ondansetron HCl (Zofran) 4 mg Q6H PRN IVP Nausea & Vomiting 10/09/18 22:00 11/08/18 21:59 Pantoprazole (Protonix) 40 mg DAILY ORAL 10/10/18 09:00 11/09/18 08:59 10/10/18 08:44 Polyethylene Glycol (Miralax) 17 gm DAILYPRN PRN ORAL Constipation 10/09/18 22:00 11/08/18 21:59 Promethazine HCl/ Codeine (Phenergan with Codeine) 5 ml Q4H PRN ORAL For Cough 10/10/18 11:15 11/09/18 11:14 Temazepam (Restoril) 15 mg HSPRN PRN ORAL Insomnia 10/09/18 22:00 10/16/18 21:59 Assessment/Plan Problem List: (1) Atrial fibrillation and flutter ICD Codes: I48.91 - Unspecified atrial fibrillation; I48.92 - Unspecified atrial flutter SNOMED: 591044839 (2) Acute coronary syndrome ICD Codes: I24.9 - Acute ischemic heart disease, unspecified SNOMED: 265246426 (3) Acute bronchitis ICD Codes: J20.9 - Acute bronchitis, unspecified SNOMED: 82655870 (4) COPD (chronic obstructive pulmonary disease) ICD Codes: J44.9 - Chronic obstructive pulmonary disease, unspecified SNOMED: 72452732 (5) CAD (coronary artery disease) ICD Codes: I25.10 - Atherosclerotic heart disease of [place] coronary artery without angina pectoris SNOMED: 06532975 Assessment/Plan: respiratory treatment check sputum serial ekg, troponin cardiology evaluation echo cardiogram Danny Cardoso MD October 10, 2018 11:26
--- NOTE | 2018-10-10 11:33 | Cardiac Electrophysiology PN ---
Subjective Subjective [id number] Objective Last 24 Hour Vital Signs Date Time Temp Pulse Resp B/P (MAP) Pulse Ox O2 Delivery O2 Flow Rate FiO2 10/10/18 09:12 90 18 100 Room Air 21 10/10/18 09:00 Room Air 10/10/18 08:59 87 18 Room Air 21 10/10/18 08:59 87 18 95 Room Air 21 10/10/18 08:00 97.7 94 18 141/91 (108) 94 10/10/18 08:00 93 10/10/18 04:00 96.8 84 20 128/78 (95) 96 10/10/18 04:00 81 10/10/18 01:47 88 18 100 Room Air 21 10/10/18 01:35 90 22 92 Room Air 21 10/10/18 01:35 90 22 Room Air 21 10/10/18 00:00 86 10/10/18 00:00 98.2 85 20 125/74 (91) 95 10/09/18 23:30 90 10/09/18 23:02 Room Air 10/09/18 22:45 97.3 87 124/60 (81) 96 10/09/18 21:48 86 17 129/67 97 Room Air 10/09/18 20:00 98.6 88 17 113/84 99 Room Air 10/09/18 20:00 137/85 10/09/18 19:48 118 18 Room Air 10/09/18 19:40 98.6 115 14 100 Room Air Intake and Output 10/09/18 10/10/18 18:59 06:59 Intake Total 480 ml Balance 480 ml Intake Oral 480 ml Laboratory Tests Test 10/09/18 19:55 10/09/18 20:35 10/09/18 20:55 10/10/18 04:50 Sodium Level 141 MMOL/L (136-145) Potassium Level 3.2 MMOL/L (3.5-5.1) L Chloride Level 104 MMOL/L (98-107) Carbon Dioxide Level 28 MMOL/L (21-32) Anion Gap 9 mmol/L (5-15) Blood Urea Nitrogen 20 mg/dL (7-18) H Creatinine 1.9 MG/DL (0.55-1.30) H Estimat Glomerular Filtration Rate 43.9 mL/min (>60) Glucose Level 191 MG/DL (74-106) H Calcium Level 8.9 MG/DL (8.5-10.1) Total Bilirubin 0.5 MG/DL (0.2-1.0) Aspartate Amino Transf (AST/SGOT) 17 U/L (15-37) Alanine Aminotransferase (ALT/SGPT) 26 U/L (12-78) Alkaline Phosphatase 84 U/L (46-116) Total Creatine Kinase 564 U/L (26-308) H Creatine Kinase MB 3.0 NG/ML (0.0-3.6) Creatine Kinase MB Relative Index 0.5 Troponin I 0.010 ng/mL (0.000-0.056) 0.017 ng/mL (0.000-0.056) Pro-B-Type Natriuretic Peptide 202 pg/mL (0-125) H Total Protein 7.7 G/DL (6.4-8.2) Albumin 3.8 G/DL (3.4-5.0) Globulin 3.9 g/dL Albumin/Globulin Ratio 1.0 (1.0-2.7) White Blood Count 6.3 K/UL (4.8-10.8) 5.9 K/UL (4.8-10.8) Red Blood Count 4.75 M/UL (4.70-6.10) 4.47 M/UL (4.70-6.10) L Hemoglobin 12.5 G/DL (14.2-18.0) L 11.8 G/DL (14.2-18.0) L Hematocrit 37.7 % (42.0-52.0) L 36.0 % (42.0-52.0) L Mean Corpuscular Volume 79 FL (80-99) L 81 FL (80-99) Mean Corpuscular Hemoglobin 26.3 PG (27.0-31.0) L 26.4 PG (27.0-31.0) L Mean Corpuscular Hemoglobin Concent 33.2 G/DL (32.0-36.0) 32.7 G/DL (32.0-36.0) Red Cell Distribution Width 13.3 % (11.6-14.8) 13.7 % (11.6-14.8) Platelet Count 187 K/UL (150-450) 178 K/UL (150-450) Mean Platelet Volume 8.2 FL (6.5-10.1) 7.9 FL (6.5-10.1) Neutrophils (%) (Auto) 52.3 % (45.0-75.0) 47.9 % (45.0-75.0) Lymphocytes (%) (Auto) 33.4 % (20.0-45.0) 34.7 % (20.0-45.0) Monocytes (%) (Auto) 9.0 % (1.0-10.0) 10.6 % (1.0-10.0) H Eosinophils (%) (Auto) 4.1 % (0.0-3.0) H 5.8 % (0.0-3.0) H Basophils (%) (Auto) 1.2 % (0.0-2.0) 1.1 % (0.0-2.0) Urine Color Noris Urine Appearance Clear Urine pH 5 (4.5-8.0) Urine Specific [place] 1.025 (1.005-1.035) Urine Protein 2+ (NEGATIVE) H Urine Glucose (UA) 1+ (NEGATIVE) H Urine Ketones 1+ (NEGATIVE) H Urine Blood Negative (NEGATIVE) Urine Nitrite Negative (NEGATIVE) Urine Bilirubin Negative (NEGATIVE) Urine Ictotest Negative (NEGATIVE) Urine Urobilinogen 1 MG/DL (0.0-1.0) H Urine Leukocyte Esterase 1+ (NEGATIVE) H Urine RBC 0-2 /HPF (0 - 0) H Urine WBC 0-2 /HPF (0 - 0) Urine Squamous Epithelial Cells Occasional /LPF Urine Bacteria Few /HPF (NONE) Prothrombin Time 11.3 SEC (9.30-11.50) Prothromb Time International Ratio 1.1 (0.9-1.1) Activated Partial Thromboplast Time 25 SEC (23-33) C-Reactive Protein, Quantitative < 0.4 mg/dL (0.00-0.90) Triglycerides Level 131 MG/DL (30-150) Cholesterol Level 101 MG/DL (< 200) LDL Cholesterol 65 mg/dL (<100) HDL Cholesterol 24 MG/DL (40-60) L Cholesterol/HDL Ratio 4.2 (3.3-4.4) Thyroid Stimulating Hormone (TSH) 1.155 uiU/mL (0.358-3.740) Bradley Iqbal MD October 10, 2018 11:33
[2018-10-10] MEDS ORDERED: Lexiscan 0.4mg/5ml syringe IV PRN (11:45)
[2018-10-10 12:00] VITALS: BP 147/67
--- NOTE | 2018-10-10 12:00 | NUR ---
Sputum inducement ordered. Pt able to spontaneously expectorate, however already coughed up some secretions prior to my arrival. Pt is aware next time to cough into lukens trap next time. Cup is at bedside. Addendum: 10/10/18 at 1202 by JOHN THOMAS RT Amended: Links added.
--- NOTE | 2018-10-10 12:08 | NUR ---
*-* INSURANCE *-* ALL CLINICALS AND REVIEWS HAVE BEEN FAXED TO: [facility] TKR# [id number] NCM: TO BE ASSIGNED PER FLO Maynard [id number] P- [phone] - [phone]...REVIEW/CLINICAL Addendum: 10/10/18 at 1321 by RADHA GUY CM [id number]
--- NOTE | 2018-10-10 12:21 | Diagnostic Imaging Report ---
Indication: Cough Comparison: 05/24/2016 A single view chest radiograph was obtained. Findings: Cardiomediastinal appearance is within normal limits for age. The lungs are clear. Pulmonary vascularity is appropriate. The diaphragmatic contour is smooth and costophrenic angles are sharp. No pleural effusions are identified. The bones are unremarkable. Impression: No acute findings
[2018-10-10] MEDS ORDERED: Eliquis 5mg tablet ORAL SCH (13:00)
--- NOTE | 2018-10-10 14:09 | Cardiology Report ---
APPROVED REPORT EXAM: Two-dimensional and M-mode echocardiogram with Doppler and color Doppler. INDICATION LV FUNCTION M-Mode DIMENSIONS IVSd1.3 (0.7-1.1cm)Left Atrium (MM)4.5 (1.6-4.0cm) LVDd5.8 (3.5-5.6cm)Aortic Root3.4 (2.0-3.7cm) PWd1.2 (0.7-1.1cm)Aortic Cusp Exc.2.4 (1.5-2.0cm) IVSs2.0 cm LVDs3.6 (2.5-4.0cm) PWs1.4 cm Technically difficult study due to pt's body habitus. Normal left ventricular chamber size, systolic function and wall motion to extent visualized. Left ventricular ejection fraction estimated to be 55-60%. No evidence of left ventricular hypertrophy . Small posterior pericardial effusion. Normal left atrial chamber size. Mild right atrial enlargement . Right ventricular size at upper limits of normal. Aortic valve calcification with normal cusp excursion . Mildly thickened mitral valve leaflets with normal excursion. Mild mitral annulus and aortic root calcification. Pulmonic valve not well visualized. IVC dilated at 3.0 cm with physiologic collapse suggestive of increased RA pressure. A color flow and spectral Doppler study was performed and revealed: Trace aortic insufficiency . Trace mitral regurgitation. Mitral inflow velocities indicates possible pseudo normalization pattern implying moderately elevated left atrial pressure (Grade II ) Moderate tricuspid regurgitation. Tricuspid systolic velocities suggests peak right ventricular systolic pressure of 47mmHg,consistent with moderate pulmonary hypertension .
--- NOTE | 2018-10-10 14:23 | Cardiology Report ---
APPROVED REPORT EKG Measurement Heart [id number] A. Flutter with PVCs or aberrantly conducted beats. Marked ST abnormality, possible inferior subendocardial injury Prolonged QT Abnormal ECG
--- NOTE | 2018-10-10 14:54 | History & Physical ---
History and Physical History & Physicial Peter Gerard MD October 10, 2018 14:53
--- NOTE | 2018-10-10 15:19 | NUR ---
Pt. Dobutamine test will not be done [employer] does not fill safe doing it due poor Echo window and EKG multiple PVC's. Also, Lexiscan may be done until Saturday too late to order Isotope solution. Communicated this to pt. and pt does not wish to stay here until Saturday and will leave against medical advice.
--- NOTE | 2018-10-10 15:23 | NUR ---
Pt has been educated on all the risk that leaving AMA will cause such as : UT, stroke or aneurism. Pt understand this serious consequences and is willing to take the risk. Pt also refused to stay here for a stress test that was schedule for saturday. Dr. Moustapha Green explained to pt the seriousness of his condition. Pt states that if he has lived with this condition for years nothing should happen is he postpones this studies until his PCP sees him next week. Dr. Gerard asked Pt to stop taking atenololol and start taking cardizem. I also went over this meds with him as well. Pt ID band is off, IV DC and is not bleeding. air sampling and monitoring is off. Pt signed for this belongings and left went down stairs to wait for his cousin to pick him . Per pt he will fill prescription right now.
--- NOTE | 2018-10-10 15:53 | NUR ---
Notified Ban coates's exwife that pt left agains medical advise. She will pass message to her daughter.
--- NOTE | 2018-10-10 17:30 | Consultation ---
DATE OF CONSULTATION: 10/10/2018 CARDIAC ELECTROPHYSIOLOGY CONSULTATION CONSULTING PHYSICIAN: Bradley Iqbal M.D. REFERRING PHYSICIAN: Peter Gerard M.D. ADDITIONAL REFERRING PHYSICIAN: Danny Cardoso M.D. REASON FOR CONSULTATION: Atrial flutter. HISTORY OF PRESENT ILLNESS: The patient is a 63-year-old gentleman with history of hypertension, diabetes, congestive heart failure, obesity presented to the emergency room complaining of chest pain with intermittent shortness of breath. The patient also had productive cough with greenish phlegm. The patient found to be in atrial flutter and was admitted to telemetry. Cardiac electrophysiology consultation was obtained for further evaluation and management. REVIEW OF SYSTEMS: Review of systems was negative other than what was mentioned in the history of present illness. PAST MEDICAL HISTORY: As mentioned above. FAMILY HISTORY: Noncontributory. SOCIAL HISTORY: He lives at home. Denies smoking or using drugs. PHYSICAL EXAMINATION: VITAL SIGNS: Blood pressure of 141/91, pulse 94, respirations 18, and temperature 97.2. HEAD AND NECK: No JVD. LUNGS: Decreased breath sounds. CARDIOVASCULAR: Irregularly irregular S1 and S2 with no gallop or murmur. ABDOMEN: Soft. EXTREMITIES: A 1+ pitting edema. LABORATORY AND DIAGNOSTIC DATA: His 12-lead EKG showed atrial flutter with a controlled ventricular response, nonspecific ST-T wave abnormality. The morphology is typical for right-sided isthmus-dependent atrial flutter based on EKG criteria. Labs show white count of 5.9, hemoglobin of 11.2, hematocrit 36, and platelet count 178. Sodium 141, potassium 3.2, BUN of 20, creatinine 1.9, and glucose of 191. Troponin negative x3. ASSESSMENT AND PLAN: 1. Chest pain. The patient already ruled out for myocardial infarction with serial cardiac enzymes. This is likely due to the patient's atrial flutter. His BNP is only mildly elevated at only 202. We will get an echocardiogram and start the patient on anticoagulation with Eliquis 5 mg b.i.d. 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 His best option for long-term cure would be atrial flutter ablation. However, this cannot be done at this facility and needs to be done by patient's contracted HMO mandates. 2. History of hypertension. We will start the patient on low-dose Cardizem that would help with the arrhythmia as well. 3. Congestive heart failure. BNP of 202. Echocardiogram is pending. 4. Diabetes on insulin. 5. Chronic obstructive pulmonary disease. 6. Obesity. Thank you very much, Dr. Gerard and Dr. Cardoso for allowing me to participate in the care of this patient. Please do not hesitate to contact me for any questions regarding my evaluation. Sincerely, Bradley Iqbal M.D. DR: Deidra JOB#: [id number] CC:
--- NOTE | 2018-10-10 22:00 | History and Physical Report ---
DATE OF ADMISSION: 10/09/2018 CHIEF COMPLAINT: Chest pain. HISTORY OF PRESENT ILLNESS: The patient is a 63-year-old gentleman with past medical history significant for congestive heart failure, coronary artery disease, COPD, morbid obesity, history of diabetes type 2, history of abdominal wall hernia, status post repair in 2007 who was presented to hospital complaining about chest pain. Shortly after initial evaluation, the patient was noted to have a productive cough with greenish sputum as well as retrosternal chest pain. Denies any shortness of breath at this time. Shortly after initial evaluation, the patient was noted in atrial flutter and the patient was subsequently admitted to the hospital with chest pain possibly due to acute coronary syndrome versus arrhythmias with atrial flutter/fibrillation. PAST MEDICAL HISTORY/PAST SURGICAL HISTORY: As above history of morbid obesity, CHF, coronary artery disease, COPD, dyslipidemia, diabetes type 2, ventricular hernia, status post repair. MEDICATIONS: Please refer to medication reconciliation. ALLERGIES: No known drug allergies. SOCIAL HISTORY: Denies any smoking at this time. Denies any substance abuse. No alcohol abuse. FAMILY HISTORY: Noncontributory. REVIEW OF SYSTEMS: Mostly as above. Denies any loss of consciousness. Denies any fall or head trauma. Denies any bright red blood per rectum. Denies any suicidal or homicidal ideation. PHYSICAL EXAMINATION: VITAL SIGNS: On admission, temperature 97.7, pulse of 90, respirations 18, and blood pressure 141/91. GENERAL: The patient awake, responsive, no acute distress. HEAD AND NECK: Pupils are reactive to light. Extraocular movements intact. Neck was supple. No JVD. LUNGS: Good air entry with no wheezing or rales. HEART: S1 and S2. Irregular. Distant heart sounds. ABDOMEN: Soft, nondistended, and nontender. Morbidly obese. Midline surgical scar was noted from the hernia repair. EXTREMITIES: No cyanosis, clubbing, or edema. NEUROLOGIC: Cranial nerves II through XII grossly intact. Motor is 5/5 in all extremities. Gait is intact. RECTAL/GENITOURINARY: Refused and deferred. PSYCHIATRIC: Mood and affect is intact. LABORATORY DATA: On admission sodium 141, potassium 3.2, chloride 104, bicarbonate 28, BUN 20, creatinine 1.9, GFR is 43, glucose is 191, calcium is 8.9. AST of 417, ALT of 26. First troponin 0.10, second troponin 0.017. CRP less than 0.4. ProBNP of 202. Cholesterol is 101. PT 11, INR 1.1, PTT of 25. UA is +2 protein, +1 ketone, +1 glucose, +1 leukocytes, and few bacteria. Chest x-ray was noted to be no acute cardiopulmonary disease. Echocardiogram, ejection fraction of 55 to 60%. No evidence of the left ventricular hypertrophy. Small posterior pericardial effusion. Right ventricular size at the upper limit. Pulmonary valve not well visualized. EKG was noted to be atrial flutter with PVC or aberrancy beats, marked ST abnormality, possible inferior subendocardial injury, prolonged QT. The patient was noted ventricular rate of 85. ASSESSMENT: 1. Chest pain, possibly due to acute coronary syndrome. 2. Atrial flutter. 3. COPD. 4. Hypertension. 5. Dyslipidemia. 6. Morbid obesity. 7. Possible obstructive sleep apnea. 8. CHF. PLAN: Admit the patient to telemetry. We will follow up with Dr. Cardoso, Pulmonary Critical Care and Dr. Iqbal from Cardiology Electrophysiology. Follow up laboratory. Code status, Full Code. Consider stress test. We will monitor the culture. Peter Gerard M.D. DR: RUSS JOB#: [id number] CC:
[2018-10-11] MEDS ORDERED: dilTIAZem HCl CD 180mg cap ORAL SCH (09:00)
[2018-10-11] MEDS ORDERED: Levofloxacin 250mg/D5W 50ml IVPB SCH (12:30)
--- NOTE | 2018-10-13 11:11 | NUR ---
*-* INSURANCE *-* ALL CLINICALS AND REVIEWS HAVE BEEN FAXED TO: [facility] P:[phone] F: [phone] REF#[id number]
--- NOTE | 2018-10-13 13:23 | Discharge Summary ---
Discharge Summary Discharge Summary _ DATE OF ADMISSION: 10/09/2017 DATE OF DISCHARGE: 1019 Patient left AGAINST MEDICAL ADVICE: REASON FOR ADMISSION: 63 years old male with past medical history of CHF, COPD, diabetes mellitus, hypertension, coronary artery disease, presented to emergency department complaining of chest pain, described as intermittent, episodic, retrosternal, lasting for 2 days. Patient denied having recent stress test. Patient saw a sandblaster glass, who told him that he likely had congestion. He denied fever or chills. He denied cough, runny nose or sore throat. Upon evaluation patient was tachycardic. Pulse oximetry was stable on room air Laboratory work-up revealed potassium 3.2. BUN 20 creatinine 1.9. Troponin negative. EKG revealed atrial flutter with controlled ventricular rate(cardiac resolved at that time). Chest x-ray revealed no acute cardiopulmonary pathology. No leukocytosis , stable hemoglobin and hematocrit. Due to multiply risk factors, patient was admitted to telemetry floor for further work-up of chest pain, rule out acute coronary syndrome. CONSULTANTS: [employer] Dr. Marshall pulmonary Dr. Cardoso [facility]: Patient admitted to telemetry floor. Cardiology and pulmonology consult were requested. Second troponin was negative. Telemetry showed atrial flutter with controlled ventricular rate. Per [employer] patient was ruled out for acute [place] by negative troponin. Patient was scheduled for stress test on Saturday . Patient was placed on anticoagulation with Eliquis. Pro BNP only mildly elevated 202. Chest pain was likely due to new onset of atrial flutter , but patient still needed to have a stress test due to multiple risk factors. Per cardiology , the fact that heart rate was less than 100, despite atrial flutter, was suggestive of underlying Purkinje disease. Best option for long-term cure for this patient would be atrial flutter ablation , which was explained to patient in detail. However it can be done at this facility . Patient will need to follow up with contracted HMO provider. Blood pressure was managed with low-dose of Cardizem , which also helped with his arrhythmia . Echocardiogram demonstrated preserved ejection fraction 55 to 60% with no evidence of wall motion abnormality. Grade 2 diastolic dysfunction. Right ventricular systolic pressure of 47 consistent with moderate pulmonary hypertension. Blood sugar was managed with sliding scale of insulin Supplemental oxygen provided as needed to keep pulse oximetry above 92%. Pulmonary toilet provided as needed. Venous duplex bilateral lower extremity revealed no evidence of acute DVT. Public Address Technician recommended outpatient sleep study to rule out obstructive sleep apnea. Renal parameters and electrolytes are closely monitor. Electrolytes corrected as needed/potassium, and nephrotoxins were avoided. Pain management was addressed as needed . Supportive care provided . Bowel regimen instituted. Patient declined to stay for stress test , which was scheduled for Saturday, and decided to leave AGAINST MEDICAL ADVICE . The risks and consequences of signing AGAINST MEDICAL ADVICE were discussed with patient in detail. Patient verbalized understanding , but nevertheless left AGAINST MEDICAL ADVICE. FINAL DIAGNOSES: Chest pain probably due to new onset of atrial flutter New onset of atrial flutter Congestive heart failure Hypertension Diabetes mellitus COPD Morbid obesity Dyslipidemia Possible DORIS I have been assigned to dictate discharge summary for this account. I was not involved in the patient's management. Hilaria Borden NP October 13, 2018 13:23
--- NOTE | 2018-10-14 09:43 | NUR ---
*-* INSURANCE *-* DISCHARGE SUMMARY HAS BEEN FAXED TO: [facility] P:[phone] F: [phone] REF#[id number]
== END 2018-10-10 15:25 | disposition left against medical advice (07) | DRG 201 ==
LOC: EMR 19:45 → 2E 20:57 → EDBEDREQ 21:27
DX: I48.92 Unspecified atrial flutter (principal); I11.0 Hypertensive heart disease with heart failure; I50.30 Unspecified diastolic (congestive) heart failure; E66.01 Morbid (severe) obesity due to excess calories; R10.9 Unspecified abdominal pain; E11.9 Type 2 diabetes mellitus without complications; J44.9 Chronic obstructive pulmonary disease, unspecified; E78.5 Hyperlipidemia, unspecified; G47.33 Obstructive sleep apnea (adult) (pediatric); I25.10 Atherosclerotic heart disease of native coronary artery without angina pectoris; J20.9 Acute bronchitis, unspecified; Z68.42 Body mass index [BMI] 45.0-49.9, adult
CPT/HCPCS: 36415; 71045; 80053; 80061; 81003; 82550; 82553; 82962; 83880; 84443; 84484; 85025; 85610; 85730; 86140; 93005; 93306; 93970; 94640; 94664; 99285; J1815; J7620

== ENCOUNTER 2019-01-16 14:43 | Emergency (ER) | payer MEDICAID ==
[~2019-01-16] VITALS: Ht 182.9 cm; Wt 154.2 kg
[~2019-01-16 14:43] MED LIST changes: +ADVAIR 500-501 EACH INH; +ASPIRIN81 M3 PO; +ATORVASTATIN CA40 MG ORAL; +NORCO 10-325 T1 EACH ORAL; +VENTOLIN HFA18 GM INH; +[UNRECOGNIZED DRUG - OTHER]
[2019-01-16 15:00] VITALS: BP 181/98
--- NOTE | 2019-01-16 15:00 | NUR ---
ED Nurse Note: pt walked in to ER from home c/o SOB. pt aao x4 and ambulatory. skin clean and intact. calm and cooperative. no acute distress noted.
--- NOTE | 2019-01-16 15:05 | NUR ---
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
--- NOTE | 2019-01-16 15:33 | Emergency Room Report ---
History of Present Illness General Chief Complaint: Dyspnea/Respdistress Source: Patient Present Illness HPI This patient states that a couple months ago he was diagnosed with COPD. 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 He has been on multiple different inhalers. He states he has had dyspnea chronically. He states that over the past 2 days it is been worse. He has been using his inhalers. He states that his inhalers have been changed secondary to them not working. He states he is also on Lasix. He states he is not compliant with his Lasix. He has noted that over the past couple days his legs and feet have been more swollen. This is caused him not to be able to get his shoes on. He denies chest pain. He denies recent illness. He denies fever or chills. He denies nausea or vomiting. He has no other complaints. 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 - arthitis Review of Systems All Other Systems: negative except mentioned in HPI Physical Exam Vital Signs Date Time Temp Pulse Resp B/P (MAP) Pulse Ox O2 Delivery O2 Flow Rate FiO2 01/16/19 14:53 98.2 99 24 181/98 (125) 94 Room Air Sp02 EP Interpretation: reviewed, normal General Appearance: no apparent distress, alert, GCS 15, non-toxic, obese Head: normocephalic, atraumatic Eyes: bilateral eye normal inspection, bilateral eye PERRL ENT: hearing grossly normal, normal pharynx, no angioedema, normal voice Neck: full range of motion, supple/symm/no masses Respiratory: chest non-tender, lungs clear, normal breath sounds, no respiratory distress, no retraction, no accessory muscle use, speaking full sentences Cardiovascular #1: regular rate, rhythm, no edema, edema - 2+pitting edema BLE feet through mid cardenas/calve. Gastrointestinal: normal bowel sounds, non tender, soft, non-distended, no guarding, no rebound Rectal: deferred Musculoskeletal: back normal, gait/station normal, normal range of motion, non- tender, calf tenderness Neurologic: alert, oriented x3, responsive, motor strength/tone normal, sensory intact, speech normal Psychiatric: judgement/insight normal, memory normal, mood/affect normal, no suicidal/homicidal ideation Skin: normal color Medical Decision Making Diagnostic Impression: Primary Impression: CHF exacerbation Additional Impressions: Anemia Renal insufficiency Hyperglycemia ER Course This patient presents with CHF exacerbation. He was given Lasix IV and an inch of Nitropaste was placed on his chest wall. Chest x-ray shows diffuse patchy opacities consistent with CHF. The patient has been noncompliant with his diuresis. He had been treating for COPD with inhalers but did not understand that he was not treating his congestive heart failure. I had plan on admitting this patient for further diuresis, however, the patient adamantly declined. He states he will go home and take his Lasix. I felt this patient should be admitted, however, he is competent to make his own medical decisions and he left AGAINST MEDICAL ADVICE. Laboratory Tests Test 01/16/19 15:20 01/16/19 16:00 White Blood Count 6.8 K/UL (4.8-10.8) Red Blood Count 4.18 M/UL (4.70-6.10) L Hemoglobin 10.9 G/DL (14.2-18.0) L Hematocrit 33.5 % (42.0-52.0) L Mean Corpuscular Volume 80 FL (80-99) Mean Corpuscular Hemoglobin 26.1 PG (27.0-31.0) L Mean Corpuscular Hemoglobin Concent 32.6 G/DL (32.0-36.0) Red Cell Distribution Width 13.3 % (11.6-14.8) Platelet Count 192 K/UL (150-450) Mean Platelet Volume 7.0 FL (6.5-10.1) Neutrophils (%) (Auto) 67.6 % (45.0-75.0) Lymphocytes (%) (Auto) 20.3 % (20.0-45.0) Monocytes (%) (Auto) 8.5 % (1.0-10.0) Eosinophils (%) (Auto) 1.9 % (0.0-3.0) Basophils (%) (Auto) 1.6 % (0.0-2.0) Sodium Level 142 MMOL/L (136-145) Potassium Level 3.2 MMOL/L (3.5-5.1) L Chloride Level 108 MMOL/L (98-107) H Carbon Dioxide Level 25 MMOL/L (21-32) Anion Gap 9 mmol/L (5-15) Blood Urea Nitrogen 16 mg/dL (7-18) Creatinine 1.7 MG/DL (0.55-1.30) H Estimate Glomerular Filtration Rate 49.7 mL/min (>60) Glucose Level 251 MG/DL (74-106) H Calcium Level 8.5 MG/DL (8.5-10.1) Total Bilirubin 0.6 MG/DL (0.2-1.0) Aspartate Amino Transferase (AST) 20 U/L (15-37) Alanine Aminotransferase (ALT) 26 U/L (12-78) Alkaline Phosphatase 58 U/L (46-116) Total Creatine Kinase 1081 U/L (26-308) H Creatine Kinase MB 5.0 NG/ML (0.0-3.6) H Creatine Kinase MB Relative Index 0.4 Troponin I 0.047 ng/mL (0.000-0.056) Total Protein 7.0 G/DL (6.4-8.2) Albumin 3.2 G/DL (3.4-5.0) L Globulin 3.8 g/dL Albumin/Globulin Ratio 0.8 (1.0-2.7) L Urine Color Yellow Urine Appearance Clear Urine pH 6.5 (4.5-8.0) Urine Specific [place] 1.015 (1.005-1.035) Urine Protein 3+ (NEGATIVE) H Urine Glucose (UA) 3+ (NEGATIVE) H Urine Ketones Negative (NEGATIVE) Urine Blood 1+ (NEGATIVE) H Urine Nitrite Negative (NEGATIVE) Urine Bilirubin Negative (NEGATIVE) Urine Urobilinogen 1 MG/DL (0.0-1.0) H Urine Leukocyte Esterase Negative (NEGATIVE) Urine RBC 2-4 /HPF (0 - 0) H Urine WBC 0-2 /HPF (0 - 0) Urine Squamous Epithelial Cells None /LPF (NONE/OCC) Urine Bacteria Few /HPF (NONE) EKG Diagnostic Results Rate: normal Rhythm: other - SR w/ PVC's NSST findings. ST Segments: other - NSST Rhythm Strip Diag. Results EP Interpretation: yes Rate: 90's Rhythm: NSR, other - frequent PVC's Chest X-Ray Diagnostic Results Chest X-Ray Diagnostic Results : Chest X-Ray Ordered: Yes # of Views/Limited/Complete: 1 View Indication: Shortness of Breath EP Interpretation: Yes Interpretation: other - Diffuse patchy opacities, cardiomegaly Last Vital Signs Date Time Temp Pulse Resp B/P (MAP) Pulse Ox O2 Delivery O2 Flow Rate FiO2 01/16/19 14:53 98.2 99 24 181/98 (125) 94 Room Air Disposition: AGAINST MEDICAL ADVICE Condition: Serious Elizabeth Nunes DO Jan 16, 2019 15:33
[2019-01-16 15:50] LABS: BASOPHILS % (AUTO) 1.6 % (0.0-2.0); EOSINOPHILS % (AUTO) 1.9 % (0.0-3.0); HEMATOCRIT 33.5 % (42.0-52.0); HEMOGLOBIN 10.9 G/DL (14.2-18.0); LYMPHOCYTES % (AUTO) 20.3 % (20.0-45.0); MEAN CORPUSCULAR VOLUME 80 FL (80-99); MONOCYTES % (AUTO) 8.5 % (1.0-10.0); NEUTROPHILS % (AUTO) 67.6 % (45.0-75.0); PLATELET COUNT 192 K/UL (150-450); RED BLOOD COUNT 4.18 M/UL (4.70-6.10); RED CELL DISTRIBUTION WIDTH 13.3 % (11.6-14.8); WHITE BLOOD COUNT 6.8 K/UL (4.8-10.8)
[2019-01-16 15:54] LABS: ANION GAP 9 mmol/L (5-15); BLOOD UREA NITROGEN 16 mg/dL (7-18); CALCIUM 8.5 MG/DL (8.5-10.1); CARBON DIOXIDE 25 MMOL/L (21-32); CHLORIDE 108 MMOL/L (98-107); CREATININE 1.7 MG/DL (0.55-1.30); POTASSIUM 3.2 MMOL/L (3.5-5.1); SODIUM 142 MMOL/L (136-145)
--- NOTE | 2019-01-16 15:56 | Diagnostic Imaging Report ---
Indication: Shortness of breath Technique: One view of the chest Comparison: 10/09/2018 Findings: Body habitus was evaluation. The heart is enlarged. There is mild interstitial congestion, not evident previously. No focal airspace consolidation. Pleural spaces are clear Impression: Cardiomegaly. Mild interstitial congestion
[2019-01-16 16:09] LABS: ALANINE AMINOTRANSFERASE 26 U/L (12-78); ALBUMIN 3.2 G/DL (3.4-5.0); ALBUMIN/GLOBULIN RATIO 0.8 (1.0-2.7); ALKALINE PHOSPHATASE 58 U/L (46-116); ASPARTATE AMINO TRANSFERASE 20 U/L (15-37); BILIRUBIN,TOTAL 0.6 MG/DL (0.2-1.0); CREATINE KINASE 1081 U/L (26-308)
[2019-01-16 16:22] LABS: APPEARANCE,URINE CLEAR; BILIRUBIN, URINE NEGATIVE (NEGATIVE); GLUCOSE, URINE (UA) 3+ (NEGATIVE); KETONES,URINE NEGATIVE (NEGATIVE); LEUKOCYTE ESTERASE ,URINE NEGATIVE (NEGATIVE); NITRITE,URINE NEGATIVE (NEGATIVE); PH,URINE 6.5 (4.5-8.0); PROTEIN,URINE 3+ (NEGATIVE); UROBILINOGEN,URINE 1 MG/DL (0.0-1.0)
[2019-01-16 16:28] LABS: COLOR,URINE YELLOW
[2019-01-16] MEDS ORDERED: Nitroglycerin 2% oint pkt TOPIC ONE (17:15)
--- NOTE | 2019-01-16 17:45 | NUR ---
ED Nurse Note: pt does not want to be admitted. ERMD at bedside.
[2019-01-16 17:52] VITALS: BP 164/87
--- NOTE | 2019-01-16 17:53 | NUR ---
AMA: Patient wished to leave AMA even after speaking to ERMD and informed about risk for leaving with current condition. pt is aox4, on room air, with vital signs at his baseline. pt was given instructions about CHF and informed that he has fluid in his lungs, pt was able to verbalize understanding on taking Lasix as directed, pt id band and iv site and Nitro patch removed without complications. pt is able to ambulate with steady gait. pt took all belongings. pt was told to come back for recurrent or worseing symptoms. pt stated "I used to skip taking Lasix but I won't"
== END 2019-01-16 17:57 | disposition left against medical advice (07) ==
LOC: EMR 15:20 → CANBEDREQ 18:04
DX: I50.9 Heart failure, unspecified (principal); D64.9 Anemia, unspecified; N28.9 Disorder of kidney and ureter, unspecified; E11.65 Type 2 diabetes mellitus with hyperglycemia; I11.0 Hypertensive heart disease with heart failure; J44.9 Chronic obstructive pulmonary disease, unspecified; M19.90 Unspecified osteoarthritis, unspecified site; Z85.89 Personal history of malignant neoplasm of other organs and systems; I25.10 Atherosclerotic heart disease of native coronary artery without angina pectoris
CPT/HCPCS: 36415; 71045; 80053; 81003; 82550; 82553; 84484; 85025; 93005; 96374; 99284; J1940; J8499

== ENCOUNTER 2019-11-28 11:59 | Emergency (ER) | payer MEDICAID ==
[~2019-11-28] VITALS: Ht 182.9 cm; Wt 152.0 kg
[2019-11-28 12:01] VITALS: BP 160/91
--- NOTE | 2019-11-28 12:18 | Emergency Room Report ---
History of Present Illness General Chief Complaint: Lower Back Pain or Injury Source: Patient Present Illness HPI Disclaimer: Please note that this report is being documented using DRAGON technology. This can lead to erroneous entry secondary to incorrect interpretation by the dictating instrument. HPI: 64-year-old male presents for evaluation of back pain. 5 days ago the patient excellently rolled off his bed falling onto his back and then had a repeat strain 2 days later. He had been using a topical lidocaine patch and Motrin with good effect but stopped taking the Motrin as his PMD told him he could affect his chronic kidney disease. He came in today because without the Motrin his backache was getting worse. He denies any numbness or tingling. Denies head injury or loss of conscious. Denies neck pain. No prior history of back injury. 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 EOMI. Resp: Normal work of breathing Skin: Intact. No abrasions, laceration or rash over the exposed skin MSK: Normal tone and bulk. Moving all extremities. No obvious deformity. Moving upper extremities without difficulty Neuro: Awake and alert. Mentating appropriately Spine: No tenderness in the cervical or lumbosacral spine in the midline without step-off or deformity. There is minimal tenderness in the midline without deformity or step-off in the mid thoracic region but significant paraspinal tenderness and tenderness over the right back in the mid scapular line. Medical Decision Making Diagnostic Impression: Primary Impression: Back strain ER Course Is a 64-year-old male presenting for evaluation of mid back pain after a fall 5 days ago. Physical exam most consistent with a strain and paraspinal spasm though x-rays were obtained to evaluate for fracture and bony pathology. X-ray of the thoracic spine does not show acute fracture, loss of vertebral height, malalignment. Radiology interpretation shows age-indeterminate endplate compression deformity at L1 and possible compression deformity at T9 again age- indeterminate. Patient treated with Tylenol and lidocaine patch applied in the ED. reports feeling better. He will be discharged with similar medications in addition to Robaxin. He is not to drive on Robaxin and we discussed this. He will follow-up with his PMD. Discussed reasons to return to the ED. He understands and agrees with treatment plan. Other X-Ray Diagnostic Results Other X-Ray Diagnostic Results : X-Ray ordered: Thoracic spine # of Views/Limited Vs Complete: 3 View Indication: Pain EP Interpretation: Yes Interpretation: no dislocation, no fractures Impression: No acute disease Electronically Signed by: Electronically signed by Dr. Bakari Martini Last Vital Signs Date Time Temp Pulse Resp B/P (MAP) Pulse Ox O2 Delivery O2 Flow Rate FiO2 11/28/19 12:01 98.4 67 17 160/91 (114) 95 Room Air Disposition: HOME, SELF-CARE Condition: Stable Scripts Lidocaine Patch* (Lidoderm Patch*) 1 Each Adh..patch 1 PATCH TOPIC DAILY, #30 PATCH Patch(es) may remain in place for up to 12 hours in any 24-hour period. Prov: Bakari Martini MD 11/28/19 Methocarbamol* (ROBAXIN-750*) 750 Mg Tablet 750 MG PO TID, #21 TAB 0 Refills Prov: Bakari Martini MD 11/28/19 Acetaminophen* (TYLENOL EXTRA STRENGTH*) 500 Mg Tablet 500 MG ORAL Q8H PRN for Prn Headache/Temp > 101, #30 TAB 0 Refills Prov: Bakari Martini MD 11/28/19 Bakari Martini MD Nov 28, 2019 12:18
[2019-11-28] MEDS ORDERED: CARISOPRODOL350 MG ORAL (12:22)
[2019-11-28] MEDS ORDERED: WARFARIN SODIUM1 MG ORAL (12:22)
[2019-11-28] MEDS ORDERED: VITAMIN D310 MCG ORAL (12:23)
[2019-11-28] MEDS ORDERED: FUROSEMIDE40 MG ORAL (12:23)
[2019-11-28] MEDS ORDERED: HUMALOG 75/255 UNIT1 SUBQ (12:23)
--- NOTE | 2019-11-28 12:32 | NUR ---
ED Nurse Note: Patient presents to ER due to right lower rib pain radiating to back for the past 3 days; reports no CP, SOB or dyspnea. Able to speak full sentence without problem. No bruise, redness or swelling noted. Reports no head injury. Patient awake, alert, oriented x 4. Regular, unlabored breathing noted. Sitting in bed without facial grimacing or guarding. Bed in lowest position.
[2019-11-28] MEDS ORDERED: ROBAXIN-750750 MG PO (13:03)
[2019-11-28] MEDS ORDERED: LIDODERM700 M1 TOPIC (13:03)
[2019-11-28] MEDS ORDERED: TYLENOL EXTRA500 MG ORAL (13:03)
[2019-11-28] MEDS ORDERED: Acetaminophen 500mg (ES) tab ORAL ONE (13:15)
--- NOTE | 2019-11-28 13:30 | Diagnostic Imaging Report ---
EXAM: XR Thoracic Spine, 2 Views CLINICAL HISTORY: INJ TECHNIQUE: Frontal and lateral views of the thoracic spine. COMPARISON: None FINDINGS: Bones: Age indeterminate superior endplate compression deformity of the L1 vertebral body. Age indeterminate possible compression deformity of the T9 vertebral body. No subluxation. Mild degenerative changes of the spine. Soft tissues: No acute finding. IMPRESSION: Age indeterminate superior endplate compression deformity of the L1 vertebral body. Age indeterminate possible compression deformity of the T9 vertebral body.
[2019-11-28 13:35] VITALS: BP 159/96
--- NOTE | 2019-11-28 13:35 | NUR ---
ER DISCHARGE NOTE: Patient is cleared to be discharged per ERMD, pt is aox4. pt was given dc and prescription instructions, pt was able to verbalize understanding, pt id band. pt is able to ambulate with steady gait with all belongings. Addendum: 11/28/19 at 1342 by MARIO No facial grimacing or guarding noted.
== END 2019-11-28 13:35 | disposition home or self-care (01) ==
LOC: EMR 12:20
DX: S39.012A Strain of muscle, fascia and tendon of lower back, initial encounter (principal); W06.XXXA Fall from bed, initial encounter; Y92.9 Unspecified place or not applicable; I13.0 Hypertensive heart and chronic kidney disease with heart failure and stage 1 through stage 4 chronic kidney disease, or unspecified chronic kidney disease; E11.22 Type 2 diabetes mellitus with diabetic chronic kidney disease; N18.9 Chronic kidney disease, unspecified; I50.9 Heart failure, unspecified; J44.9 Chronic obstructive pulmonary disease, unspecified; M19.90 Unspecified osteoarthritis, unspecified site; Z85.9 Personal history of malignant neoplasm, unspecified
CPT/HCPCS: 72070; Z7502; 99283

== ENCOUNTER 2019-12-14 00:43 | Inpatient (IN) | payer MEDICAID ==
[~2019-12-14] VITALS: Ht 180.3 cm; Wt 144.7 kg
[~2019-12-14 00:43] MED LIST changes: +CARISOPRODOL350 MG ORAL; +HUMALOG 75/255 UNIT1 SUBQ; +VITAMIN D310 MCG ORAL; +WARFARIN SODIUM1 MG ORAL
[2019-12-14 01:15] VITALS: BP 188/103
--- NOTE | 2019-12-14 01:30 | Emergency Room Report ---
History of Present Illness General Chief Complaint: Edema Source: Patient Present Illness HPI Disclaimer: Please note that this report is being documented using [employer] technology. This can lead to erroneous entry secondary to incorrect interpretation by the dictating instrument. HPI: 64-year-old male with a history of atrial fibrillation on warfarin, CHF on Lasix presents for evaluation of bilateral pedal edema shortness of breath. Symptoms present approximate 1 week. He notes worsening pain and swelling in the lower extremities though he still able to ambulate. Swelling is symmetrical and bilateral. He denies injury or fall. Reports intermittent shortness of breath particular with ambulation but denies chest pain, fever, cough, vomiting, diarrhea or other changes in his health. He typically takes 4 mg Lasix daily but today took a total of 120 mg. Reports good urine output. No change in his swelling. 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 EOMI. Cardiovascular: RRR. S1 and S2 normal. No murmur appreciated Resp: Normal work of breathing. No cough, wheezing or crackles appreciated Abdomen: Abdomen is soft, nondistended. Nontender Skin: Intact. No abrasions, laceration or rash over the exposed skin MSK: Normal tone and bulk. Moving all extremities. 3+ edema lower extremities up to the knees. Lower extremities symmetrical. Neuro: Awake and alert. Mentating appropriately. Medical Decision Making Diagnostic Impression: Primary Impression: CHF exacerbation Additional Impressions: Hyperglycemia Renal insufficiency Subtherapeutic international normalized ratio (INR) ER Course 64-year-old male history of CHF presents for evaluation of bilateral pedal edema and exertional dyspnea. Symptoms consistent with CHF exacerbation no ACS , arrhythmia, renal failure, volume overload, viral syndrome also on the differential. EKG obtained showing sinus rhythm with prolonged LA interval, normal axis and intermittent PVCs. Prolonged QT interval at 508 ms. Chest x- ray shows evidence of fluid overload with bilateral pulmonary congestion and a small right pleural effusion. Labs show slightly elevated troponin elevated BN peptide consistent with CHF exacerbation. The patient is already taken 120 mg of Lasix. He will be given aspirin. Renal function slightly worse than his baseline. Last creatinine was 1.7 today is 2.2 with elevation of BUN. Patient required 2 L nasal cannula as he was desaturating to the low 90s. Immediately improved and feels better on nasal cannula. Good urine output at this point. INR is subtherapeutic. Patient was recently switched to warfarin. He will be admitted for CHF exacerbation, hyperglycemia, subtherapeutic INR and renal insufficiency. Will admit to panel physician, Dr. Robertson Laboratory Tests Test 12/14/19 01:40 White Blood Count 7.8 K/UL (4.8-10.8) Red Blood Count 5.06 M/UL (4.70-6.10) Hemoglobin 12.7 G/DL (14.2-18.0) L Hematocrit 41.8 % (42.0-52.0) L Mean Corpuscular Volume 83 FL (80-99) Mean Corpuscular Hemoglobin 25.2 PG (27.0-31.0) L Mean Corpuscular Hemoglobin Concent 30.4 G/DL (32.0-36.0) L Red Cell Distribution Width 15.7 % (11.6-14.8) H Platelet Count 188 K/UL (150-450) Mean Platelet Volume 8.1 FL (6.5-10.1) Neutrophils (%) (Auto) 69.9 % (45.0-75.0) Lymphocytes (%) (Auto) 18.8 % (20.0-45.0) L Monocytes (%) (Auto) 7.8 % (1.0-10.0) Eosinophils (%) (Auto) 2.2 % (0.0-3.0) Basophils (%) (Auto) 1.3 % (0.0-2.0) Prothrombin Time 12.8 SEC (9.30-11.50) H Prothrombin Time INR 1.2 (0.9-1.1) H Activated Partial Thromboplast Time 25 SEC (23-33) Sodium Level 141 MMOL/L (136-145) Potassium Level 4.0 MMOL/L (3.5-5.1) Chloride Level 103 MMOL/L (98-107) Carbon Dioxide Level 31 MMOL/L (21-32) Anion Gap 7 mmol/L (5-15) Blood Urea Nitrogen 21 mg/dL (7-18) H Creatinine 2.2 MG/DL (0.55-1.30) H Estimated Glomerular Filtration Rate 37.0 mL/min (>60) Glucose Level 334 MG/DL (74-106) H Calcium Level 8.6 MG/DL (8.5-10.1) Total Bilirubin 0.5 MG/DL (0.2-1.0) Aspartate Amino Transferase (AST) 15 U/L (15-37) Alanine Aminotransferase (ALT) 36 U/L (12-78) Alkaline Phosphatase 69 U/L (46-116) Troponin I 0.088 ng/mL (0.000-0.056) Pro-B-Type Natriuretic Peptide 1044 pg/mL (0-125) H Total Protein 7.3 G/DL (6.4-8.2) Albumin 3.4 G/DL (3.4-5.0) Globulin 3.9 g/dL Albumin/Globulin Ratio 0.9 (1.0-2.7) L EKG Diagnostic Results EKG Time: 01:37 Rate: normal Other Impression Sinus rhythm, normal axis, frequent PVCs, prolonged LA interval, prolonged QTC at 508 ms Rhythm Strip Diag. Results Rhythm Strip Time: 01:37 EP Interpretation: yes Rate: 80s Rhythm: other - PVCs Chest X-Ray Diagnostic Results Chest X-Ray Diagnostic Results : Chest X-Ray Ordered: Yes # of Views/Limited/Complete: 1 View Indication: Shortness of Breath EP Interpretation: Yes Interpretation: other - Bilateral vascular congestion and small right middle lobe effusion. Impression: Other - Bilateral pulmonary congestion and right-sided effusion Electronically Signed by: Electronically signed by Dr. Bakari Martini Last Vital Signs Date Time Temp Pulse Resp B/P (MAP) Pulse Ox O2 Delivery O2 Flow Rate FiO2 12/14/19 01:07 98.2 80 22 190/120 (143) 98 Room Air Disposition: ADMITTED INPATIENT Condition: Serious Bakari Martini MD Dec 14, 2019 01:30
[2019-12-14 01:45] LABS: BASOPHILS % (AUTO) 1.3 % (0.0-2.0); EOSINOPHILS % (AUTO) 2.2 % (0.0-3.0); HEMATOCRIT 41.8 % (42.0-52.0); HEMOGLOBIN 12.7 G/DL (14.2-18.0); LYMPHOCYTES % (AUTO) 18.8 % (20.0-45.0); MEAN CORPUSCULAR VOLUME 83 FL (80-99); MONOCYTES % (AUTO) 7.8 % (1.0-10.0); NEUTROPHILS % (AUTO) 69.9 % (45.0-75.0); PLATELET COUNT 188 K/UL (150-450); RED BLOOD COUNT 5.06 M/UL (4.70-6.10); RED CELL DISTRIBUTION WIDTH 15.7 % (11.6-14.8); WHITE BLOOD COUNT 7.8 K/UL (4.8-10.8)
[2019-12-14 01:57] LABS: ANION GAP 7 mmol/L (5-15); BLOOD UREA NITROGEN 21 mg/dL (7-18); CALCIUM 8.6 MG/DL (8.5-10.1); CARBON DIOXIDE 31 MMOL/L (21-32); CHLORIDE 103 MMOL/L (98-107); CREATININE 2.2 MG/DL (0.55-1.30); INR 1.2 (0.9-1.1); SODIUM 141 MMOL/L (136-145)
[2019-12-14 02:09] LABS: ALBUMIN 3.4 G/DL (3.4-5.0); ALBUMIN/GLOBULIN RATIO 0.9 (1.0-2.7); ALKALINE PHOSPHATASE 69 U/L (46-116); ASPARTATE AMINO TRANSFERASE 15 U/L (15-37); BILIRUBIN,TOTAL 0.5 MG/DL (0.2-1.0)
[2019-12-14] MEDS ORDERED: Aspirin Baby 81mg ORAL ONE (02:15)
[2019-12-14 02:23] LABS: ALANINE AMINOTRANSFERASE 36 U/L (12-78)
[2019-12-14] MEDS ORDERED: ASPIRIN81 MG ORAL (02:36)
[2019-12-14] MEDS ORDERED: SPIRIVA INHALE1 PUF1 INH (02:36)
[2019-12-14] MEDS ORDERED: Morphine Sulfate 2mg/ml Inj(IV/IM USE ONLY) IVP PRN (02:45)
--- NOTE | 2019-12-14 04:47 | Diagnostic Imaging Report ---
EXAM: XR Chest, 1 View CLINICAL HISTORY: SOB TECHNIQUE: Frontal view of the chest. COMPARISON: No relevant prior studies available. FINDINGS/IMPRESSION: [id number] vascular congestion. Small left pleural effusion. No pneumothorax. Cardiomegaly.
[2019-12-14 08:00] VITALS: BP 170/85
[2019-12-14] MEDS ORDERED: Albuterol/Ipratropium 3ml neb HHN PRN (09:15)
[2019-12-14] MEDS ORDERED: dilTIAZem HCl CD 180mg cap ORAL SCH (09:30)
[2019-12-14] MEDS ORDERED: Aspirin EC 81mg tab ORAL SCH (10:00)
[2019-12-14 10:53] LABS: ALANINE AMINOTRANSFERASE 40 U/L (12-78); ALBUMIN/GLOBULIN RATIO 0.8 (1.0-2.7); ALKALINE PHOSPHATASE 68 U/L (46-116); ANION GAP 6 mmol/L (5-15); ASPARTATE AMINO TRANSFERASE 19 U/L (15-37); BILIRUBIN,TOTAL 0.5 MG/DL (0.2-1.0); BLOOD UREA NITROGEN 20 mg/dL (7-18); CALCIUM 8.3 MG/DL (8.5-10.1); CARBON DIOXIDE 30 MMOL/L (21-32); CHLORIDE 102 MMOL/L (98-107); POTASSIUM 3.7 MMOL/L (3.5-5.1); SODIUM 138 MMOL/L (136-145)
[2019-12-14] MEDS ORDERED: NovoLOG Insulin Flexpen SUBQ SCH (11:30)
[2019-12-14 11:33] VITALS: BP 161/89
--- NOTE | 2019-12-14 12:30 | History and Physical Report ---
DATE OF ADMISSION: 12/14/2019 CHIEF COMPLAINT: Lower extremity edema and shortness of breath HISTORY OF PRESENT ILLNESS: The patient is a pleasant 64-year-old male. He has a history of hypertension, diabetes, chronic kidney disease, and congestive heart failure, who presented with complaints of one week of worsening lower extremity edema, dyspnea on exertion, and shortness of breath. The patient has been compliant with his medications including his diuretic. He has had some dyspnea on exertion and shortness of breath. He has been taking inhalers, but they have not improved. He eventually presented to the emergency room. The patient denies any fevers or chills. He has had no chest pain or cough. On evaluation there, he was noted to be markedly hypertensive. He received IV Lasix x1 with good urine output. He is now admitted for further evaluation and care. He states his shortness of breath significantly improved. He feels 100 times better. PAST MEDICAL HISTORY: As above. PAST SURGICAL HISTORY: Includes hernia surgery. CURRENT MEDICATIONS: Reconciled and reviewed. ALLERGIES: None. FAMILY HISTORY: Significant for hypertension. SOCIAL HISTORY: The patient is a prior smoker. No alcohol. No drugs. REVIEW OF SYSTEMS: Negative except for shortness of breath and lower extremity edema. PHYSICAL EXAMINATION: VITAL SIGNS: Temperature 97, pulse 83, respirations 20, and blood pressure 170/85. GENERAL: The patient is well developed, in no apparent distress. HEART: Regular rate and rhythm. LUNGS: Clear. ABDOMEN: Soft, nontender, nondistended. EXTREMITIES: Significant for 1 to 2+ pitting edema. LABORATORY DATA: Sodium 141, potassium 4, BUN 21, creatinine 2.2. Troponin 0.088. Natriuretic peptide was 1000. Chest x-ray shows [id number] pulmonary vascular congestion. ASSESSMENT: This is a pleasant male admitted with complaints of shortness of breath secondary to congestive heart failure exacerbation. PROBLEMS: 1. CHF exacerbation. 2. History of AFib. 3. Hypertension. 4. Diabetes. 5. History of chronic kidney disease. PLAN: 1. IV Lasix. 2. Continue antiplatelet therapy. 3. Continue outpatient diabetic regimen. 4. Titrate antihypertensive regimen. 5. The patient hopefully can go home later today if stable. I suspect that troponin is secondary to the patient's uncontrolled hypertension and CHF. 6. We will follow up later today for possible discharge if improved. Jong Robertson M.D. DR: YAMINI JOB#: [id number] CC:
[2019-12-14] MEDS ORDERED: FUROSEMIDE40 MG ORAL (15:20)
[2019-12-14] MEDS ORDERED: Warfarin Sodium 5mg ORAL SCH (17:00)
[2019-12-14] MEDS ORDERED: Levemir Flexpen SUBQ SCH (21:00)
[2019-12-14] MEDS ORDERED: Atorvastatin 20mg tab ORAL SCH (21:00)
[2019-12-15] MEDS ORDERED: GlipiZIDE 5mg tab ORAL SCH (06:30)
--- NOTE | 2019-12-15 08:37 | Discharge Summary ---
Discharge Summary Discharge Summary _ DATE OF ADMISSION: 12/14/2019 DATE OF DISCHARGE: 12/14/2019 DISCHARGED BY: Dr. Robertson REASON FOR ADMISSION: 64 years old male with past medical history of CHF, diabetes mellitus, hypertension, atrial fibrillation, currently on anticoagulation with warfarin and diuretic with Lasix, presented for evaluation due to bilateral pedal edema and shortness of breath. P matt reported symptoms lasted for about a week. He noted worsening pain and swelling in the lower extremities, but was able to ambulate. Swelling noted to be symmetrical and bilateral. He denied trauma or injury. He reported intermittent shortness of breath , worse with ambulation. No chest pain or palpitations. No cough no congestion. No fever or chills. No diarrhea. Upon evaluation patient had elevated blood pressure 190/120. Pulse oximetry was stable on room air , no fevers. Laboratory work-up revealed no leukocytosis , hemoglobin 12.7, hematocrit 41.8, platelet count 188. Stable electrolytes. BUN 21, creatinine 2.2. Glucose 334. Troponin 0.088 pro BNP 1044 , EKG revealed sinus rhythm with frequent PVC . Chest x-ray revealed mild to moderate vascular congestion. Small left pleural effusion. No pneumothorax. Cardiomegaly. In ED patient received Lasix and aspirin and admitted for further management. HOSPITAL COURSE: Patient admitted to telemetry floor. Patient started on intravenous diuretic. Volumes were closely monitored. Antiplatelet therapy with aspirin and statin continued. Antihypertensive regimen titrated. Blood pressure was managed with IV Lasix, and Cardizem. Clonidine started on as needed basis and was given as well. Blood pressure improved. Outpatient diabetic regimen continued. Blood sugar was managed with long-acting insulin /Levemir , Glipizide and sliding scale of insulin as needed . Blood sugar improved. Hemoglobin A1c 12, clearly not at goal. Patient was provided with diabetic teaching. Diabetic diet provided. Patient was encouraged compliance with medication regimen as outpatient and diet. Repeated troponin at the same level 0.081. Levels flat, no chest pain,, no ischemic changes on ECG. Minimally elevated troponin was likely due to uncontrolled hypertension and congestive heart failure. Supplemental oxygen was on board as needed to keep pulse oximetry above 90%. Pulse oximetry remained stable on room air. Patient stabilized and was ready for discharge. Due to rapid and unexpected improvement in patient condition, patient was discharged in 1 day. FINAL DIAGNOSES: CHF exacerbation Atrial fibrillation Hypertension with initial hypertensive urgency Diabetes mellitus with hyperglycemia Chronic kidney disease DISCHARGE MEDICATIONS: See Medication Reconciliation list. DISCHARGE INSTRUCTIONS: Patient was discharged home. Follow-up with a primary care provider in 1 week. Patient was encouraged to comply with medication regimen and diet. I have been assigned to dictate discharge summary for this account. I was not involved in the patient's management. Hilaria Borden NP Dec 15, 2019 08:37
== END 2019-12-14 16:00 | disposition home or self-care (01) | DRG 194 ==
LOC: EMR 01:24 → 2E 01:50 → EDBEDREQ 02:52
DX: I13.0 Hypertensive heart and chronic kidney disease with heart failure and stage 1 through stage 4 chronic kidney disease, or unspecified chronic kidney disease (principal); E11.22 Type 2 diabetes mellitus with diabetic chronic kidney disease; N18.9 Chronic kidney disease, unspecified; I50.9 Heart failure, unspecified; I48.91 Unspecified atrial fibrillation; I16.0 Hypertensive urgency; E11.65 Type 2 diabetes mellitus with hyperglycemia; Z79.01 Long term (current) use of anticoagulants; Z85.89 Personal history of malignant neoplasm of other organs and systems; Z87.891 Personal history of nicotine dependence
CPT/HCPCS: 36415; 71045; 80053; 82962; 83036; 83735; 83880; 84443; 84484; 85025; 85610; 85730; 93005; 93306; 99285; J1815; S5561